=== PATIENT | female | born 1940 | race Caucasian/White ===

== ENCOUNTER 2019-08-12 10:02 | Emergency (ER) | payer MEDICARE, BC ==
[~2019-08-12] VITALS: Ht 167.6 cm; Wt 65.8 kg
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
--- OUTSIDE RECORDS SUMMARY | 2019-08-12 10:04 | XMS REPORT | Summary of Care ---
Author Author RAJ MATTHEW Unknown Address Unknown Phone Unavailable Care Team Providers Care Combiner Operator Name Role Phone ELLY Gao, RYAN Unavailable Unavailable RAJ MATTHEW Unavailable Unavailable NURIS Gao, CELI Unavailable Sola GONZALEZ MD [place], ELIZABETH PALM Unavailable Unavailable NURIS PAINTER, CELI Senior Unavailable Unavailable CARLOS Gao, ELIZABETH Unavailable Unavailable MARY KAPOK AND COTTON MACHINE OPERATOR, RADHA Unavailable Unavailable Elly PAINTER, Ryan Unavailable Unavailable CARLOS PAINTER, ELIZABETH ANTHONY Unavailable Unavailable EVE BARRERA [place], SHAHLA Gonzalez Unavailable Unavailable NITIN PAINTER, SANDRA Obregon Unavailable Unavailable NARAYAN CERVANTES, EDMUND Unavailable Unavailable TRU MORATAYA [place], RAJ FRAIRE Unavailable Unavailable MATTEO PAINTER [place], SHELBIE Unavailable Unavailable Unavailable Unavailable Functional Status [...] Z78.0) Status: Active 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 (0-1-7-2-4-2-2) * Quantity: 90 Refills: 0 RAJ MATTHEW * Start : 15-Apr-2015 Active Simvastatin 20 MG Oral Tablet TAKE 1 TABLET NIGHTLY AT BEDTIME * Quantity: 90 Refills: 1 RYAN SANABRIA M.D. * Start : 15-Oct-2015 Active Multivitamins TABS TAKE 1 TABLET DAILY. * Refills: 0 Active Stool Softener TABS TAKE 1 TABLET TWICE DAILY * Refills: 0 Active Dulcolax Stool Softener CAPS ABOUT ONCE A WEEK, NEEDED * Refills: 0 Active Fiber Adult Gummies CHEW TAKE 2 TABLET DAILY * Refills: 0 Active Calcium + D TABS TAKE 1 TABLET TWICE DAILY * Refills: 0 Active Nitroglycerin 0.4 MG Sublingual Tablet Sublingual DISSOLVE 1 TABLET UNDER THE TONGUE NEEDED FOR CHEST PAIN. * Quantity: 30 Refills: 0 CELI LAWLER M.D. * Start : 07-Jul-2019 Active Fludrocortisone Acetate 0.1 MG Oral Tablet [...] Z87.440) Status: Resolved Procedures Procedure Dates Details [QLH] HEPATIC FUNCTION PANEL Date: 26-Jun-2019 [QL] TSH, 3RD GENERATION W/REFLEX TO FT4 Date: 31-Jul-2019 History of Bladder Procedures Completed History of Tonsillectomy Completed History of Shoulder Surgery Completed History of Arthroscopy Knee Completed History of Cholecystectomy Completed 16-Jul-2016 Immunization Name Dates Details Zoster (Zostavax) on: Jul-2007 Hepatitis A on: 25-Aug-2010 Influenza on: 10-Mar-2011 Fluzone INJ Lot #: [id number] on: 20-Mar-2013 Influenza on: 04-Apr-2014 Prevnar 13 Intramuscular Suspension Lot #: [id number] on: 20-Aug-2014 Fluvirin INJ Lot #: [id number] on: 15-Mar-2015 Fluzone Quadrivalent 0.5 ML Intramuscular Suspension Lot #: [id number] on: 20-Mar-2016 Pneumovax 23 25 MCG/0.5ML Injection Injectable Lot #: [id number] on: 08-Sep-2016 Fluzone High-Dose 0.5 ML Intramuscular Suspension Prefilled Syringe Lot #: [id number] on: 10-Mar-2017 Fluzone High-Dose 0.5 ML Intramuscular Suspension Prefilled Syringe Lot #: [id number] on: 17-Mar-2018 Shingrix 50 MCG/0.5ML Intramuscular Suspension Reconstituted on: 04-Apr-2018 Tdap on: 04-Apr-2018 Shingrix 50 MCG/0.5ML Intramuscular Suspension Reconstituted on: 04-Jun-2018 Fluzone High-Dose 0.5 ML Intramuscular Suspension Prefilled Syringe Lot #: [id number] on: 19-Apr-2019 Family History Name Dates Details [...] Value Details :54 XRAY Chest 4 views [id number] Chest 4 views SEE NOTES Comments: EXAM: [...] is approximately 13% higher for peopleidentified as -[place]. eGFR NON- 45 {ML/MIN/1.7} (Below low threshold) [...] u/l (Above high threshold) Range: 6-29 :23 [[facility]] D-DIMER, QUANTITATIVE D-DIMER, QUANTITATIVE 0.31 {mcg/mL_FEU} [...] 2006 11:295(2):199-207] For additional information, please refer to:http://education.UannaBe/faq/UJN968(This link is being provided for informational/educational purposes only) :23 [[facility]] CBC (INCLUDES DIFF/PLT) WHITE BLOOD CELL [...] 7.5-12.5 ABSOLUTE NEUTROPHILS 3548 {cells/uL} (Normal) Range: 5169-1006 ABSOLUTE LYMPHOCYTES 691 {cells/uL} (Below low threshold) [...] <0.01 Comments: For additional information, please refer tohttp://education.UannaBe/faq/XIX886(This link is being provided for informational/educationalpurposes only.) :50 [O] PT/INR (in office) International Normalization Ratio 1.8 PT 21.7 . 33q :48 [O] PT/INR (in office) PT 28.5 (Normal) INR 2.4 (Normal) Plan of Care Name Dates Details Planned Observations Planned Goals not documented Planned Encounters Appointment; RAJ OTT P.A. On: 07-Aug-2019 8:00 Appointment; CELI LAWLER M.D. On: 10-Aug-2019 8:15 Appointment; SHELBIE FELIPE M.D. On: 03-Nov-2019 9:15 Appointment; JOSÉ LEBLANC On: 21-Nov-2019 8:00 Appointment; RYAN SANABRIA M.D. On: 28-Nov-2019 10:00 Interventions Provided Medication Changes* Fludrocortisone Acetate 0.1 MG Oral Tablet - Renew with Changes * Levothyroxine Sodium 50 MCG Oral Tablet - Renew Labs/Procedures/Imaging* [QLH] TSH, 3RD GENERATION W/REFLEX TO FT4; To Be Done: 31 Jul 2019 * [O] PT/INR (in office); Done: 31 Jul 2019 Plan* Hypotension - now having elevated BP readings; decrease fludrocortisone to 0.1 mg once daily; monitor BP; BP possible increasing now that she is no longer taking amiodarone * Anticoagulation with warfarin - INR at goal; continue same warfarin dose; f/u 1 week to recheck PT/INR * hypothyroidism - recheck TSH * Atrial fibrillation/CAD - per EP and cardiology recommendations Instructions Name Dates Details Instructions not documented Encounters Appointment; ELIZABETH GONZALEZ M.D. Encounter Diagnosis: Problem not documented On: 09-Aug-2017 8:15 Appointment; ELIZABETH GONZALEZ M.D. Encounter Diagnosis: Problem not documented On: 06-Sep-2017 8:30 Appointment; ELIZABETH GONZALEZ M.D. Encounter Diagnosis: Problem not documented On: 08-Oct-2017 9:45 Appointment; EDMUND BUSCH, PKevinAKevin Encounter Diagnosis: Problem not documented On: 08-Nov-2017 9:00 Appointment; EDMUND BUSCH PKevinAKevin Encounter Diagnosis: Problem not documented On: 06-Dec-2017 12:30 Appointment; EDMUND BUSCH PJosué Encounter Diagnosis: Problem not documented On: 03-Jan-2018 8:30 Appointment; RYAN SANABRIA M.D. Encounter Diagnosis: Problem not documented On: 11-Jan-2018 9:20 Appointment; EDMUND BUSCH PKevinAKevin Encounter Diagnosis: Problem not documented On: 02-Feb-2018 8:15 Appointment; RAJ OTT P.A. Encounter Diagnosis: Problem not documented On: 08-Feb-2018 10:30 Appointment; EDMUND BUSCH P.AKevin Encounter Diagnosis: Problem not documented On: 15-Feb-2018 9:30 Appointment; EDMUND BUSCH P.AKevin Encounter Diagnosis: Problem not documented On: 17-Mar-2018 8:45 Appointment; EDMUND BUSCH P.AKevin Encounter Diagnosis: Problem not documented On: 31-Mar-2018 8:00 Appointment; ELIZABETH GONZALEZ M.D. Encounter Diagnosis: Problem not documented On: 06-Apr-2018 9:30 Appointment; ELIZABETH GONZALEZ M.D. Encounter Diagnosis: Problem not documented On: 06-Apr-2018 9:30 Appointment; EDMUND BUSCH PKevinAKevin Encounter Diagnosis: Problem not documented On: 02-May-2018 7:30 Appointment; EDMUND BUSCH P.AKevin Encounter Diagnosis: Problem not documented On: 09-May-2018 8:15 Appointment; EDMUND BUSCH PKevinAKevin Encounter Diagnosis: Problem not documented On: 30-May-2018 8:15 Appointment; RADHA HERNANDEZ NP Encounter Diagnosis: Problem not documented On: 13-Jun-2018 8:00 Appointment; EDMUND BUSCH PKevinAKevin Encounter Diagnosis: Problem not documented On: 29-Jun-2018 8:00 Appointment; RYAN SANABRIA M.D. Encounter Diagnosis: Problem not documented On: 15-Jul-2018 9:20 Appointment; EDMUND BUSCH P.AKevin Encounter Diagnosis: Problem not documented On: 29-Jul-2018 15:00 Appointment; EDMUND BUSCH P.AKevin Encounter Diagnosis: Problem not documented On: 29-Aug-2018 8:15 Appointment; RYAN SANABRIA M.D. Encounter Diagnosis: Problem not documented On: 30-Aug-2018 10:00 Appointment; GUIDO LEBLANC Encounter Diagnosis: Problem not documented On: 30-Aug-2018 13:00 Appointment; EDMUND BUSCH P.AKevin Encounter Diagnosis: Problem not documented On: 05-Sep-2018 10:00 Appointment; EDMUND BUSCH PKevinAKevin Encounter Diagnosis: Problem not documented On: 12-Sep-2018 9:15 Appointment; RYAN SANABRIA M.D. Encounter Diagnosis: Problem not documented On: 21-Sep-2018 18:00 Appointment; EDMUND BUSCH P.A. Encounter Diagnosis: Problem not documented On: 26-Sep-2018 9:30 Appointment; RAJ OTT P.A. Encounter Diagnosis: Problem not documented On: 10-Oct-2018 9:45 Appointment; SHAHLA PRADO RD Encounter Diagnosis: Problem not documented On: 11-Oct-2018 10:00 Appointment; EDMUND BUSCH P.AKevin Encounter Diagnosis: Problem not documented On: 31-Oct-2018 9:30 Appointment; EDMUND BUSCH P.A. Encounter Diagnosis: Problem not documented On: 14-Nov-2018 11:15 Appointment; EDMUND BUSCH P.A. Encounter Diagnosis: Problem not documented On: 01-Dec-2018 10:30 Appointment; RYAN SANABRIA M.D. Encounter Diagnosis: Problem not documented On: 07-Dec-2018 13:40 Appointment; EDMUND BUSCH PKevinAKevin Encounter Diagnosis: Problem not documented On: 26-Dec-2018 7:30 Appointment; EDMUND BUSCH P.A. Encounter Diagnosis: Problem not documented On: 25-Jan-2019 7:30 Appointment; GUIDO LEBLANC Encounter Diagnosis: Problem not documented On: 13-Feb-2019 14:00 Appointment; MICHEAL HERNANDEZ P.A. Encounter Diagnosis: Problem not documented On: 27-Feb-2019 9:00 Appointment; JOSÉ LEBLANC Encounter Diagnosis: Problem not documented On: 01-Mar-2019 [...] not documented On: 31-Mar-2019 9:15 Appointment; ELIZABETH GONZAELZ M.D. Encounter Diagnosis: Problem not documented On: 19-Apr-2019 9:45 Appointment; EDMUND BUSCH P.A. Encounter Diagnosis: Problem not documented On: 25-Apr-2019 [...]
--- OUTSIDE RECORDS SUMMARY | 2019-08-12 10:05 | XMS REPORT | Summary of Care ---
Author Author [facility] Address [address] [place] [address] Phone Unavailable Care Team Providers Care Re Etcher Name Role Phone ELLY Gao, RYAN Unavailable Unavailable TRU P.AKevin, RAJ Unavailable Unavailable NURIS Gao, CELI Unavailable Sola GONZALEZ MD [place], ELIZABETH PALM Unavailable Unavailable NURIS PAINTER, CELI Senior Unavailable Unavailable CARLOS Gao, ELIZABETH Unavailable Unavailable MARY ACOUSTIC WARFARE ANALYST, RADHA Unavailable Unavailable Elly PAINTER, Ryan Unavailable Unavailable CARLOS PAINTER, ELIZABETH ANTHONY Unavailable Unavailable EVE BARRERA [place], SHAHLA Gonzalez Unavailable Unavailable NITIN PAINTER, SANDRA Obregon Unavailable Unavailable NARAYAN CERVANTES, EDMUND Unavailable Unavailable TRU PA [place], RAJ FRAIRE Unavailable Unavailable MATTEO PAINTER [place], SHELBIE Unavailable Unavailable Unavailable Unavailable Functional Status [...] Z78.0) Status: Active 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 (6-6-9-2-4-2-2) * Quantity: 90 Refills: 0 RAJ MATTHEW [...] Z87.440) Status: Resolved Procedures Procedure Dates Details [[facility]] HEPATIC FUNCTION PANEL Date: 26-Jun-2019 History of Bladder Procedures Completed History of Tonsillectomy Completed History of Shoulder Surgery Completed History of Arthroscopy Knee Completed History of Cholecystectomy Completed 16-Jul-2016 Immunization Name Dates Details Zoster (Zostavax) on: Jul-2007 Hepatitis A on: 25-Aug-2010 Influenza on: 10-Mar-2011 Fluzone INJ Lot #: [id number] on: 20-Mar-2013 Influenza on: 04-Apr-2014 Prevnar 13 Intramuscular Suspension Lot #: [id number] on: 20-Aug-2014 Fluvirin INJ Lot #: [id number] on: 15-Mar-2015 Fluzone Quadrivalent 0.5 ML Intramuscular Suspension Lot #: [id number] on: 20-Mar-2016 Pneumovax 23 25 MCG/0.5ML Injection Injectable Lot #: [id number] on: 08-Sep-2016 Fluzone High-Dose 0.5 ML Intramuscular Suspension Prefilled Syringe Lot #: [id number] on: 10-Mar-2017 Fluzone High-Dose 0.5 ML Intramuscular Suspension Prefilled Syringe Lot #: [id number] on: 17-Mar-2018 Shingrix 50 MCG/0.5ML Intramuscular Suspension Reconstituted on: 04-Apr-2018 Tdap on: 04-Apr-2018 Shingrix 50 MCG/0.5ML Intramuscular Suspension Reconstituted on: 04-Jun-2018 Fluzone High-Dose 0.5 ML Intramuscular Suspension Prefilled Syringe Lot #: [id number] on: 19-Apr-2019 Family History Name Dates Details [...] Value Details :54 XRAY Chest 4 views [id number] Chest 4 views SEE NOTES Comments: EXAM: [...] by: Gomez Knowles MD 07/07/2015:08FINAL REPORT :23 [[facility]] CMP W/EGFR GLUCOSE 98 mg/dl (Normal) Range: 65-139 Comments: Non-fasting reference interval UREA NITROGEN (BUN) 28 mg/dl (Above high threshold) Range: 7-25 CREATININE 1.16 mg/dl (Above high threshold) Range: 0.60-0.93 Comments: For patients >49 years of age, the reference limitfor Creatinine is approximately 13% higher for peopleidentified as -[place]. eGFR NON- 45 {ML/MIN/1.7} (Below low threshold) [...] u/l (Above high threshold) Range: 6-29 :23 [[facility]] D-DIMER, QUANTITATIVE D-DIMER, QUANTITATIVE 0.31 {mcg/mL_FEU} (Normal) [...] 2006 11:295(2):199-207] For additional information, please refer to:http://education.GlycoPure/faq/VXA707(This link is being provided for informational/educational purposes only) :23 [[facility]] CBC (INCLUDES DIFF/PLT) WHITE BLOOD CELL COUNT [...] 7.5-12.5 ABSOLUTE NEUTROPHILS 3548 {cells/uL} (Normal) Range: 9600-9259 ABSOLUTE LYMPHOCYTES 691 {cells/uL} (Below low threshold) [...] <0.01 Comments: For additional information, please refer tohttp://education.[employer].Procurify/faq/TGN223(This link is being provided for informational/educationalpurposes only.) [...] Appointment; RYAN SANABRIA M.D. On: 28-Nov-2019 10:00 Instructions Name Dates Details Instructions not documented Encounters Appointment; ELIZABETH GONZALEZ M.D. Encounter Diagnosis: Problem not documented On: 09-Aug-2017 8:15 Appointment; ELIZABETH GONZALEZ M.D. Encounter Diagnosis: Problem not documented On: 06-Sep-2017 8:30 Appointment; ELIZABETH GONZALEZ M.D. Encounter Diagnosis: Problem not documented On: 08-Oct-2017 9:45 Appointment; EDMUND BUSCH PKevinAKevin Encounter Diagnosis: Problem not documented On: 08-Nov-2017 9:00 Appointment; EDMUND BUSCH PKevinAKevin Encounter Diagnosis: Problem not documented On: 06-Dec-2017 12:30 Appointment; EDMUND BUSCH P.A. Encounter Diagnosis: Problem not documented On: 03-Jan-2018 [...] documented On: 17-Mar-2018 8:45 Appointment; EDMUND BUSCH PKevinAKevin Encounter Diagnosis: Problem not documented On: 31-Mar-2018 8:00 Appointment; ELIZABETH GONZALEZ M.D. Encounter Diagnosis: Problem not documented On: 06-Apr-2018 9:30 Appointment; ELIZABETH GONZALEZ M.D. Encounter Diagnosis: Problem not documented On: 06-Apr-2018 9:30 Appointment; EDMUND BUSCH P.A. Encounter Diagnosis: Problem not documented On: 02-May-2018 7:30 Appointment; EDMUND BUSCH P.A. Encounter Diagnosis: Problem not documented On: 09-May-2018 8:15 Appointment; EDMUND BUSCH P.A. Encounter Diagnosis: Problem not documented On: 30-May-2018 8:15 Appointment; RADHA HERNANDEZ NP Encounter Diagnosis: Problem not documented On: 13-Jun-2018 8:00 Appointment; EDMUND BUSCH P.A. Encounter Diagnosis: Problem not documented On: 29-Jun-2018 8:00 Appointment; RYAN SANABRIA M.D. Encounter Diagnosis: Problem not documented On: 15-Jul-2018 9:20 Appointment; EDMUND UBSCH P.A. Encounter Diagnosis: Problem not documented On: 29-Jul-2018 15:00 Appointment; EDMUND BUSCH P.A. Encounter Diagnosis: Problem not documented On: 29-Aug-2018 8:15 Appointment; RYAN SANABRIA M.D. Encounter Diagnosis: Problem not documented On: 30-Aug-2018 10:00 Appointment; GUIDO LEBLANC Encounter Diagnosis: Problem not documented On: 30-Aug-2018 13:00 Appointment; EDMUND BUSCH P.A. Encounter Diagnosis: Problem not documented On: 05-Sep-2018 10:00 Appointment; EDMUND BUSCH P.A. Encounter Diagnosis: Problem not documented On: 12-Sep-2018 [...] documented On: 07-Dec-2018 13:40 Appointment; EDMUND BUSCH P.A. Encounter Diagnosis: Problem not documented On: 26-Dec-2018 [...]
--- OUTSIDE RECORDS SUMMARY | 2019-08-12 10:05 | XMS REPORT | Summary of Care ---
Author Author Sheila Clark M.A. Unknown Address [facility] Phone Unavailable Care Team Providers Care Plant Machinist Name Role Phone Sheila Clark M.A. Unavailable Unavailable ELLY Gao, RYAN Unavailable Unavailable TRU Cole, RAJ Unavailable Unavailable NURIS Gao, CELI Unavailable Sola GONZALEZ MD [place], ELIZABETH PALM Unavailable Unavailable NURIS PAINTER, CELI Senior Unavailable Unavailable CARLOS Gao, ELIZABETH Unavailable Unavailable MARY REDUCING SYSTEM OPERATOR, RADHA Unavailable Unavailable Elly PAINTER, Ryan Unavailable Unavailable CARLOS PAINTER, ELIZABETH ANTHONY Unavailable Unavailable EVE BARRERA [place], SHAHLA J Unavailable Unavailable NITIN PAINTER, SANDRA Obregon Unavailable Unavailable NARAYAN CERVANTES, EDMUND Unavailable Unavailable TRU MORATAYA [place], RAJ FRAIRE Unavailable Unavailable MATTEO PAINTER [place], SHELBIE Unavailable Unavailable Unavailable Unavailable Functional Status [...] ALBINA-inhibitor cough (786.2, R05) Status: Active Special DrKevin Services Analysis Of Computerized Data Status: Active [...] Z78.0) Status: Active 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 * Refills: 0 Active Dulcolax Stool Softener CAPS ABOUT ONCE A WEEK, NEEDED * Refills: 0 Active Fiber Adult Gummies CHEW TAKE 2 TABLET DAILY * Refills: 0 Active Stool Softener TABS TAKE 1 TABLET TWICE DAILY * Refills: 0 Active Calcium + D TABS TAKE 1 TABLET TWICE DAILY * Refills: 0 Active Simvastatin 20 MG Oral Tablet TAKE [...] Tuesdays & Fridays take 2 po qd. (9-5-6-2-4-2-2) * Quantity: 90 Refills: 0 TRU P.A., RAJ * Start : 15-Apr-2015 Active Fludrocortisone Acetate [...] Resolved Procedures Procedure Dates Details [[facility]] HEPATIC FUNCTION PANEL Date: 26-Jun-2019 History of Bladder Procedures Completed History of Tonsillectomy Completed History of Shoulder Surgery Completed History of Arthroscopy Knee Completed History of Cholecystectomy Completed 16-Jul-2016 Immunization Name Dates Details Zoster (Zostavax) on: Jul-2007 Hepatitis A on: 25-Aug-2010 Influenza on: 10-Mar-2011 Fluzone INJ Lot #: [id number] on: 20-Mar-2013 Influenza on: 04-Apr-2014 Prevnar 13 Intramuscular Suspension Lot #: [id number] on: 20-Aug-2014 Fluvirin INJ Lot #: [id number] on: 15-Mar-2015 Fluzone Quadrivalent 0.5 ML Intramuscular Suspension Lot #: [id number] on: 20-Mar-2016 Pneumovax 23 25 MCG/0.5ML Injection Injectable Lot #: [id number] on: 08-Sep-2016 Fluzone High-Dose 0.5 ML Intramuscular Suspension Prefilled Syringe Lot #: [id number] on: 10-Mar-2017 Fluzone High-Dose 0.5 ML Intramuscular Suspension Prefilled Syringe Lot #: [id number] on: 17-Mar-2018 Shingrix 50 MCG/0.5ML Intramuscular Suspension Reconstituted on: 04-Apr-2018 Tdap on: 04-Apr-2018 Shingrix 50 MCG/0.5ML Intramuscular Suspension Reconstituted on: 04-Jun-2018 Fluzone High-Dose 0.5 ML Intramuscular Suspension Prefilled Syringe Lot #: [id number] on: 19-Apr-2019 Family History Name Dates Details [...] Value Details :54 XRAY Chest 4 views [id number] Chest 4 views SEE NOTES Comments: EXAM: [...] by: Gomez Knowles MD 07/07/2015:08FINAL REPORT :23 [[facility]] CMP W/EGFR GLUCOSE 98 mg/dl (Normal) Range: 65-139 Comments: Non-fasting reference interval UREA NITROGEN (BUN) 28 mg/dl (Above high threshold) Range: 7-25 CREATININE 1.16 mg/dl (Above high threshold) Range: 0.60-0.93 Comments: For patients >49 years of age, the reference limitfor Creatinine is approximately 13% higher for peopleidentified as -[place]. eGFR NON- 45 {ML/MIN/1.7} (Below low threshold) [...] high threshold) Range: 6-29 :23 [[facility]] D-DIMER, QUANTITATIVE D-DIMER, QUANTITATIVE 0.31 {mcg/mL_FEU} (Normal) [...] 2006 11:295(2):199-207] For additional information, please refer to:http://education.Miew/faq/VDH435(This link is being provided for informational/educational purposes only) :23 [[facility]] CBC (INCLUDES DIFF/PLT) WHITE BLOOD CELL COUNT [...] 7.5-12.5 ABSOLUTE NEUTROPHILS 3548 {cells/uL} (Normal) Range: 8839-6850 ABSOLUTE LYMPHOCYTES 691 {cells/uL} (Below low threshold) [...] <0.01 Comments: For additional information, please refer tohttp://education.CloudSafe.CoCollage/faq/QNS048(This link is being provided for informational/educationalpurposes only.) [...] documented On: 08-Oct-2017 9:45 Appointment; EDMUND BUSCH P.A. Encounter Diagnosis: Problem not documented On: 08-Nov-2017 9:00 Appointment; EDMUND BUSCH P.A. Encounter Diagnosis: Problem not documented On: 06-Dec-2017 12:30 Appointment; EDMUND BUSCH P.A. Encounter Diagnosis: Problem not documented On: 03-Jan-2018 8:30 Appointment; RYAN SANABRIA M.D. Encounter Diagnosis: Problem not documented On: 11-Jan-2018 9:20 Appointment; EDMUND BUSCH PJosué Encounter Diagnosis: Problem not documented On: 02-Feb-2018 8:15 Appointment; RAJ OTT P.A. Encounter Diagnosis: Problem not documented On: 08-Feb-2018 10:30 Appointment; EDMUND BUSCH P.A. Encounter Diagnosis: Problem not documented On: 15-Feb-2018 9:30 Appointment; EDMUND BUSCH PKevinAKevin Encounter Diagnosis: Problem not documented On: 17-Mar-2018 8:45 Appointment; EDMUND BUSCH PJosué Encounter Diagnosis: Problem not documented On: 31-Mar-2018 [...] documented On: 15-Jul-2018 9:20 Appointment; EDMUND BUSCH P.A. Encounter Diagnosis: Problem not documented On: 29-Jul-2018 15:00 Appointment; EDMUND BUSCH P.A. Encounter Diagnosis: Problem not documented On: 29-Aug-2018 8:15 Appointment; RYAN SANABRIA M.D. Encounter Diagnosis: Problem not documented On: 30-Aug-2018 10:00 Appointment; GUIDO LEBLANC Encounter Diagnosis: Problem not documented On: 30-Aug-2018 13:00 Appointment; EDMUND BUSCH P.A. Encounter Diagnosis: Problem not documented On: 05-Sep-2018 10:00 Appointment; EDMUND BUSCH P.AKevin Encounter Diagnosis: Problem not documented On: 12-Sep-2018 9:15 Appointment; RYAN SANABRIA M.D. Encounter Diagnosis: Problem not documented On: 21-Sep-2018 18:00 Appointment; DEMUND BUSCH P.A. Encounter Diagnosis: Problem not documented [...]
--- OUTSIDE RECORDS SUMMARY | 2019-08-12 10:05 | XMS REPORT | Summary of Care ---
Author Author [facility] Address [address] [place] [address] Phone Unavailable Care Team Providers Care Endoscopy Technican Name Role Phone ELLY Gao, RYAN Unavailable Unavailable TRU P.AKevin, RAJ Unavailable Unavailable NURIS Gao, CELI Unavailable Sola GONZALEZ MD [place], ELIZABETH PALM Unavailable Unavailable NURIS PAINTER, CELI Senior Unavailable Unavailable CARLOS Gao, ELIZABETH Unavailable Unavailable MARY MOTOR VEHICLE EMISSIONS INSPECTOR, RADHA Unavailable Unavailable Elly PAINTER, Ryan Unavailable Unavailable CARLOS PAINTER, ELIZABETH ANTHONY Unavailable Unavailable EVE BARRERA [place], SHAHLA Gonzalez Unavailable Unavailable NITIN PAINTER, SANDRA Obregon Unavailable Unavailable NARAYAN CERVANTES, EDMUND Unavailable Unavailable TRU PA GA, RAJ FRAIRE Unavailable Unavailable MATTEO PAINTER GA, SHELBIE Unavailable Unavailable Unavailable Unavailable Functional Status [...] Z78.0) Status: Active 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 (5-6-7-2-4-2-2) * Quantity: 90 Refills: 0 RAJ MATTHEW [...] Status: Resolved Procedures Procedure Dates Details [[facility]] HEPATIC FUNCTION PANEL Date: 26-Jun-2019 History of Bladder Procedures Completed History of Tonsillectomy Completed History of Shoulder Surgery Completed History of Arthroscopy Knee Completed History of Cholecystectomy Completed 16-Jul-2016 Immunization Name Dates Details Zoster (Zostavax) on: Jul-2007 Hepatitis A on: 25-Aug-2010 Influenza on: 10-Mar-2011 Fluzone INJ Lot #: [id number] on: 20-Mar-2013 Influenza on: 04-Apr-2014 Prevnar 13 Intramuscular Suspension Lot #: [id number] on: 20-Aug-2014 Fluvirin INJ Lot #: [id number] on: 15-Mar-2015 Fluzone Quadrivalent 0.5 ML Intramuscular Suspension Lot #: [id number] on: 20-Mar-2016 Pneumovax 23 25 MCG/0.5ML Injection Injectable Lot #: [id number] on: 08-Sep-2016 Fluzone High-Dose 0.5 ML Intramuscular Suspension Prefilled Syringe Lot #: [id number] on: 10-Mar-2017 Fluzone High-Dose 0.5 ML Intramuscular Suspension Prefilled Syringe Lot #: [id number] on: 17-Mar-2018 Shingrix 50 MCG/0.5ML Intramuscular Suspension Reconstituted on: 04-Apr-2018 Tdap on: 04-Apr-2018 Shingrix 50 MCG/0.5ML Intramuscular Suspension Reconstituted on: 04-Jun-2018 Fluzone High-Dose 0.5 ML Intramuscular Suspension Prefilled Syringe Lot #: [id number] on: 19-Apr-2019 Family History Name Dates Details [...] 65yrs) or more drinks in a day? Results Date Description Value Details :23 [[facility]] CMP W/EGFR GLUCOSE 98 mg/dl (Normal) Range: [...] (Above high threshold) Range: 6-29 :23 [[facility]] D-DIMER, QUANTITATIVE D-DIMER, QUANTITATIVE 0.31 {mcg/mL_FEU} (Normal) [...] 2006 11:295(2):199-207] For additional information, please refer to:[email or web address] Pty LTD/faq/XDF892(This link is being provided for informational/educational purposes only) [id number]:23 [[facility]] CBC (INCLUDES DIFF/PLT) WHITE BLOOD CELL COUNT [...] 7.5-12.5 ABSOLUTE NEUTROPHILS 3548 {cells/uL} (Normal) Range: 0362-0885 ABSOLUTE LYMPHOCYTES 691 {cells/uL} (Below low threshold) Range: 850-3900 ABSOLUTE MONOCYTES 421 {cells/uL} (Normal) Range: 200-950 ABSOLUTE EOSINOPHILS 191 {cells/uL} (Normal) Range: 15-500 ABSOLUTE BASOPHILS 49 {cells/uL} (Normal) Range: 0-200 NEUTROPHILS 72.4 % (Normal) LYMPHOCYTES 14.1 % (Normal) MONOCYTES 8.6 % (Normal) EOSINOPHILS 3.9 % (Normal) BASOPHILS 1.0 % (Normal) [id number] [QL] TROPONIN T Comments: REPORT COMMENT:FASTING:NO TROPONIN T <0.01 ng/ml Range: <0.01 Comments: For additional information, please refer [email or web address] [employer]/faq/UCT786(This link is being provided for informational/educationalpurposes only.) [...] documented On: 11-Jan-2018 9:20 Appointment; EDMUND BUSCH P.A. Encounter Diagnosis: Problem not documented On: 02-Feb-2018 8:15 Appointment; RAJ OTT P.A. Encounter Diagnosis: Problem not documented On: 08-Feb-2018 10:30 Appointment; EDMUND BUSCH P.AKevin Encounter Diagnosis: Problem not documented On: 15-Feb-2018 9:30 Appointment; EDMUND BUSCH P.AKevin Encounter Diagnosis: Problem not documented On: 17-Mar-2018 8:45 Appointment; EDMUDN BUSCH P.A. Encounter Diagnosis: Problem not documented On: 31-Mar-2018 [...] Problem not documented On: 30-Aug-2018 10:00 Appointment; [place]-[facility], HOLTER Encounter Diagnosis: Problem not documented On: 30-Aug-2018 13:00 Appointment; EDMUND BUSCH P.AKevin Encounter Diagnosis: Problem not documented On: 05-Sep-2018 10:00 Appointment; EDMUND BUSCH P.AKevin Encounter Diagnosis: Problem not documented On: 12-Sep-2018 9:15 Appointment; RYAN SANABRIA M.D. Encounter Diagnosis: Problem not documented On: 21-Sep-2018 18:00 Appointment; EDMUND BUSCH P.AKevin Encounter Diagnosis: Problem not documented On: 26-Sep-2018 [...] Problem not documented On: 25-Jan-2019 7:30 Appointment; [place], HOLTER Encounter Diagnosis: Problem not documented On: 13-Feb-2019 14:00 Appointment; MICHEAL HERNANDEZ P.A. Encounter Diagnosis: Problem not documented On: 27-Feb-2019 9:00 Appointment; [place], ECHO Encounter Diagnosis: Problem not documented On: [...]
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
--- OUTSIDE RECORDS SUMMARY | 2019-08-12 10:06 | XMS REPORT | Summary of Care ---
Author Author [facility] Address [address] [place] [address] Phone Unavailable Care Team Providers Care Sign Painter Helper Name Role Phone ELLY Gao, RYAN Unavailable Unavailable TRU P.AKevin, RAJ Unavailable Unavailable NURIS Gao, CELI Unavailable Sola GONZALEZ MD [place], ELIZABETH PALM Unavailable Unavailable NURIS PAINTER, CELI Senior Unavailable Unavailable CARLOS Gao, ELIZABETH Unavailable Unavailable MARY RESPIRATORY PHYSICIAN, RADHA Unavailable Unavailable Elly PAINTER, Ryan Unavailable Unavailable CARLOS PAINTER, ELIZABETH ANTHONY Unavailable Unavailable EVE BARRERA [place], SHAHLA Gonzalez Unavailable Unavailable NITIN PAINTER, SANDRA Obregon Unavailable Unavailable NARAYAN CERVANTES, EDMUND Unavailable Unavailable TRU PA [place], RAJ FRAIRE Unavailable Unavailable MATTEO PAINTER [...] Z78.0) Status: Active 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 (3-7-4-2-4-2-2) * Quantity: 90 Refills: 0 RAJ MATTHEW [...] Resolved Procedures Procedure Dates Details [[facility]] HEPATIC FUNCTION PANEL Date: 26-Jun-2019 History of Bladder Procedures Completed History of Tonsillectomy Completed History of Shoulder Surgery Completed History of Arthroscopy Knee Completed History of Cholecystectomy Completed 16-Jul-2016 Immunization Name Dates Details Zoster (Zostavax) on: Jul-2007 Hepatitis A on: 25-Aug-2010 Influenza on: 10-Mar-2011 Fluzone INJ Lot #: [id number] on: 20-Mar-2013 Influenza on: 04-Apr-2014 Prevnar 13 Intramuscular Suspension Lot #: [id number] on: 20-Aug-2014 Fluvirin INJ Lot #: [id number] on: 15-Mar-2015 Fluzone Quadrivalent 0.5 ML Intramuscular Suspension Lot #: [id number] on: 20-Mar-2016 Pneumovax 23 25 MCG/0.5ML Injection Injectable Lot #: [id number] on: 08-Sep-2016 Fluzone High-Dose 0.5 ML Intramuscular Suspension Prefilled Syringe Lot #: [id number] on: 10-Mar-2017 Fluzone High-Dose 0.5 ML Intramuscular Suspension Prefilled Syringe Lot #: [id number] on: 17-Mar-2018 Shingrix 50 MCG/0.5ML Intramuscular Suspension Reconstituted on: 04-Apr-2018 Tdap on: 04-Apr-2018 Shingrix 50 MCG/0.5ML Intramuscular Suspension Reconstituted on: 04-Jun-2018 Fluzone High-Dose 0.5 ML Intramuscular Suspension Prefilled Syringe Lot #: [id number] on: 19-Apr-2019 Family History Name Dates Details [...] Results Date Description Value Details :23 [[facility]] CMP W/EGFR GLUCOSE 98 mg/dl (Normal) Range: 65-139 Comments: Non-fasting reference interval UREA NITROGEN (BUN) 28 mg/dl (Above high threshold) Range: 7-25 CREATININE 1.16 mg/dl (Above high threshold) Range: 0.60-0.93 Comments: For patients >49 years of age, the reference limitfor Creatinine is approximately 13% higher for peopleidentified as -[place]. eGFR NON- 45 {ML/MIN/1.7} (Below low threshold) [...] high threshold) Range: 6-29 :23 [[facility]] D-DIMER, QUANTITATIVE D-DIMER, QUANTITATIVE 0.31 [...] 2006 11:295(2):199-207] For additional information, please refer to:http://education.PropertyGuru/faq/CIH470(This link is being provided for informational/educational purposes only) [id number]:23 [[facility]] CBC (INCLUDES DIFF/PLT) WHITE BLOOD [...] 7.5-12.5 ABSOLUTE NEUTROPHILS 3548 {cells/uL} (Normal) Range: 0655-3300 ABSOLUTE LYMPHOCYTES 691 {cells/uL} (Below low threshold) Range: 850-3900 ABSOLUTE MONOCYTES 421 {cells/uL} (Normal) Range: 200-950 ABSOLUTE EOSINOPHILS 191 {cells/uL} (Normal) Range: 15-500 ABSOLUTE BASOPHILS 49 {cells/uL} (Normal) Range: 0-200 NEUTROPHILS 72.4 % (Normal) LYMPHOCYTES 14.1 % (Normal) MONOCYTES 8.6 % (Normal) EOSINOPHILS 3.9 % (Normal) BASOPHILS 1.0 % (Normal) [id number] [QL] TROPONIN T Comments: REPORT COMMENT:FASTING:NO TROPONIN T <0.01 ng/ml Range: <0.01 Comments: For additional information, please refer tohttp://[email or web address]/faq/ERS724(This link is being provided for informational/educationalpurposes only.) [...] Planned Goals not documented Planned Encounters Appointment; CELI LAWLER M.D. On: 10-Aug-2019 8:15 [...] documented On: 15-Feb-2018 9:30 Appointment; EDMUND BUSCH P.A. Encounter Diagnosis: Problem not documented On: 17-Mar-2018 8:45 Appointment; EDMUND BUSCH P.A. Encounter Diagnosis: Problem [...] Problem not documented On: 25-Jan-2019 7:30 Appointment; KM LEBLANCTER Encounter Diagnosis: Problem not documented On: 13-Feb-2019 [...]
--- OUTSIDE RECORDS SUMMARY | 2019-08-12 10:06 | XMS REPORT | Summary of Care ---
Author Author RAJ MATTHEW Unknown Address Unknown Phone Unavailable Care Team Providers Care House Steward/Stewardess Name Role Phone ELLY Gao, RYAN Unavailable Unavailable RAJ MATTHEW Unavailable Unavailable NURIS Gao, CELI Unavailable Sola GONZALEZ MD [place], ELIZABETH PALM Unavailable Unavailable NURIS PAINTER, CELI Senior Unavailable Unavailable CARLOS Gao, ELIZABETH Unavailable Unavailable MARY ANIMAL CAREGIVER, RADHA Unavailable Unavailable Elly PAINTER, Ryan Unavailable Unavailable CARLOS PAINTER, ELIZABETH ANTHONY Unavailable Unavailable EVE BARRERA [place], SHAHLA Gonzalez Unavailable Unavailable NITIN PAINTER, SANDRA Obregon Unavailable Unavailable NARAYAN CERVANTES, EDMUND Unavailable Unavailable TRU MORATAYA [place], RAJ FRAIRE Unavailable Unavailable MATTEO PAINTER [place], SHELBIE Unavailable Unavailable Unavailable Unavailable Functional Status [...] Z78.0) Status: Active 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, I25.10) Status: Active Deep vein thrombosis prophylaxis (V07.9, Z29.9) Status: Active Palpitations (785.1, R00.2) Status: Active Acute pain of left knee (719.46, M25.562) Status: Active Varicose veins (454.9, I83.90) Status: Active Hematuria (599.70, R31.9) Status: Active RLQ abdominal tenderness (789.63, R10.813) Status: Active Constipation (564.00, K59.00) Status: Active Elevated liver enzymes (790.5, R74.8) Status: Active Upper back pain (724.5, M54.9) Status: Active Hypothyroidism (244.9, E03.9) Status: Active CAD (coronary artery disease) (414.00, I25.10) Status: Active Hypotension (458.9, I95.9) Status: Active Urinary frequency (788.41, R35.0) Status: Active Balance disorder (781.99, R26.89) Status: Active Cognitive decline (294.9, R41.89) Status: Active Paroxysmal atrial fibrillation (427.31, I48.0) Status: Active Shortness of breath (786.05, R06.02) Status: Active Essential (primary) hypertension (401.9, I10) Status: Active Anticoagulated by anticoagulation treatment (V58.61, Z79.01) Status: Active Medications Name Dates Details Levothyroxine Sodium 50 MCG Oral Tablet TAKE 1 TABLET DAILY Quantity: 90 RAJ MATTHEW * Start : 13-Mar-2014 Active Tylenol CAPS TAKE CAPSULE PRN * Refills: 0 Active Warfarin Sodium 2 MG Oral Tablet TAKE 1 po per day, except on Tuesdays & Fridays take 2 po qd. (7-8-3-2-4-2-2) * Quantity: 90 Refills: 0 RAJ MATTHEW [...] Active Fludrocortisone Acetate 0.1 MG Oral Tablet 1 PO QOD x 1 week, then 1 PO every third day * Quantity: 60 Refills: 1 TRU RAJ Cole * Start : 19-Jul-2019 Active Allergies and [...] Multiparity (V61.5, Z64.1) Status: Resolved History of orthostatic hypotension (V12.59, Z86.79) Status: Resolved History of Osteoarthritis (V13.4) Status: Resolved History of osteopenia (V13.59, Z87.39) Status: Resolved History of Polyp of sigmoid colon (211.3, K63.5) Status: Resolved History of Stress fracture of foot (733.95, M84.376A) Status: Resolved History of Ultrasound Trans-Vaginal Uterus Atrophied Status: Resolved History of urinary tract infection (V13.02, Z87.440) Status: Resolved Procedures Procedure Dates Details [QLH] HEPATIC FUNCTION PANEL Date: 26-Jun-2019 [QL] CBC (INCLUDES DIFF/PLT) Date: 07-Aug-2019 [QL] CMP W/EGFR Date: 07-Aug-2019 [QLH] VITAMIN B12 Date: 07-Aug-2019 [QL] CULTURE, URINE, ROUTINE Date: 07-Aug-2019 [QL] URINALYSIS, COMPLETE Date: 07-Aug-2019 History of Bladder Procedures Completed History of Tonsillectomy Completed History of Shoulder Surgery Completed History of Arthroscopy Knee Completed History of Cholecystectomy Completed 16-Jul-2016 Immunization Name Dates Details Zoster (Zostavax) on: Jul-2007 Hepatitis A on: 25-Aug-2010 Influenza on: 10-Mar-2011 Fluzone INJ Lot #: [id number] on: 20-Mar-2013 Influenza on: 04-Apr-2014 Prevnar 13 Intramuscular Suspension Lot #: [id number] on: 20-Aug-2014 Fluvirin INJ Lot #: [id number] on: 15-Mar-2015 Fluzone Quadrivalent 0.5 ML Intramuscular Suspension Lot #: [id number] on: 20-Mar-2016 Pneumovax 23 25 MCG/0.5ML Injection Injectable Lot #: [id number] on: 08-Sep-2016 Fluzone High-Dose 0.5 ML Intramuscular Suspension Prefilled Syringe Lot #: [id number] on: 10-Mar-2017 Fluzone High-Dose 0.5 ML Intramuscular Suspension Prefilled Syringe Lot #: [id number] on: 17-Mar-2018 Shingrix 50 MCG/0.5ML Intramuscular Suspension Reconstituted on: 04-Apr-2018 Tdap on: 04-Apr-2018 Shingrix 50 MCG/0.5ML Intramuscular Suspension Reconstituted on: 04-Jun-2018 Fluzone High-Dose 0.5 ML Intramuscular Suspension Prefilled Syringe Lot #: [id number] on: 19-Apr-2019 Family History Name Dates Details [...] smoker Vital Signs Date Test Result Details :43 BP Systolic 175 mm[Hg] Status: Comments: Location: LLE; Position: Sitting BP Diastolic 81 mm[Hg] Status: Comments: Location: LLE; Position: Sitting Height 66 in Status: Weight 156 lb Status: Body Mass Index Calculated 25.18 kg/m2 Status: Body Surface Area Calculated 1.8 m2 Status: Temperature 97.1 f Status: Comments: Method: Temporal Heart Rate 65 /min Status: [id number] BP Systolic 141 mm[Hg] Status: BP Diastolic 65 mm[Hg] Status: Height 66 in Status: Weight 156.3 lb Status: Body Mass Index Calculated 25.23 kg/m2 Status: Body Surface Area Calculated 1.8 m2 Status: Temperature 97.4 f Status: Heart Rate 59 /min Status: Respiration Rate 16 /min Status: :31 BP Systolic 79 mm[Hg] Status: Comments: Location: LUE; Position: Standing BP Diastolic 54 mm[Hg] Status: Comments: Location: LUE; Position: Standing :56 BP Systolic 108 mm[Hg] Status: Comments: Location: LUE; Position: Sitting BP Diastolic 68 mm[Hg] Status: Comments: Location: LUE; Position: Sitting Height 66 in Status: Weight 148 lb Status: Body Mass Index Calculated 23.89 kg/m2 Status: Body Surface Area Calculated 1.76 m2 Status: Temperature 97.8 f Status: Comments: Method: Temporal Heart Rate 79 /min Status: Respiration Rate 16 /min Status: Physical Findings 0 Status: Comments: Alcohol Screen - How many times in the past yr have you had 5 (for M) or 4 (for F) or 4 (for all > 65yrs) or more drinks in a day? Results Date Description Value Details :23 [[facility]] CMP W/EGFR GLUCOSE 98 mg/dl (Normal) Range: 65-139 Comments: Non-fasting reference interval UREA NITROGEN (BUN) 28 mg/dl (Above high threshold) Range: 7-25 CREATININE 1.16 mg/dl (Above high threshold) Range: 0.60-0.93 Comments: For patients >49 years of age, the reference limitfor Creatinine is approximately 13% higher for peopleidentified as -[place]. eGFR NON- 45 {ML/MIN/1.7} (Below low threshold) [...] high threshold) Range: 6-29 :23 [[facility]] D-DIMER, QUANTITATIVE D-DIMER, QUANTITATIVE 0.31 [...] 2006 11:295(2):199-207] For additional information, please refer to:http://education.[employer]/faq/RRM632(This link is being provided for informational/educational purposes only) :23 [[facility]] CBC (INCLUDES DIFF/PLT) WHITE BLOOD [...] 7.5-12.5 ABSOLUTE NEUTROPHILS 3548 {cells/uL} (Normal) Range: 9265-4186 ABSOLUTE LYMPHOCYTES 691 {cells/uL} (Below low threshold) [...] <0.01 Comments: For additional information, please refer tohttp://education.[employer]/faq/FOD279(This link is being provided for informational/educationalpurposes only.) :50 [O] PT/INR (in office) International Normalization Ratio 1.8 PT 21.7 . 33q :48 [O] PT/INR (in office) PT 28.5 (Normal) INR 2.4 (Normal) :45 [QLH] TSH, 3RD GENERATION W/REFLEX TO FT4 Comments: REPORT COMMENT:FASTING:NO TSH, 3RD GENERATION W/REFLEX TO FT4 2.91 {MIU/L} (Normal) Range: 0.40-4.50 :56 [O] PT/INR (in office) PT 32.5 (Normal) INR 2.7 (Normal) :19 [O] Urine Dipstick (In Office) Glucose neg (Normal) LEUKOCYTES neg (Normal) NITRITE neg (Normal) UROBILINOGEN neg (Normal) PROTEIN neg (Normal) pH 7 (Abnormal) URINE BLOOD neg (Normal) SPECIFIC GRAVITY 1.005 (Abnormal) KETONES neg (Normal) BILIRUBIN neg (Normal) COLOR URINE yellow (Normal) APPEARANCE cloudy (Abnormal) Plan of Care Name Dates Details Planned Observations Planned Goals not documented Planned Encounters Neurology Referral Appointment; CELI LAWLER M.D. On: 21-Aug-2019 9:15 Appointment; ELIZABETH GONZALEZ M.D. On: 25-Aug-2019 8:15 Appointment; SHELBIE FELIPE M.D. On: 03-Nov-2019 9:15 Appointment; JOSÉ LEBLANC On: 21-Nov-2019 8:00 Appointment; RYAN SANABRIA M.D. On: 28-Nov-2019 10:00 Interventions Provided Medication Changes* Fludrocortisone Acetate 0.1 MG Oral Tablet - Renew with Changes Labs/Procedures/Imaging* [QLH] CBC (INCLUDES DIFF/PLT); To Be Done: 07 Aug 2019 * [QLH] CMP W/EGFR; To Be Done: 07 Aug 2019 * [QLH] CULTURE, URINE, ROUTINE; To Be Done: 07 Aug 2019 * [QL] URINALYSIS, COMPLETE; To Be Done: 07 Aug 2019 * [QLH] VITAMIN B12; To Be Done: 07 Aug 2019 * [O] PT/INR (in office); Done: 07 Aug 2019 * [O] Urine Dipstick (In Office); Done: 07 Aug 2019 Plan* HTN - uncontrolled; decreased fludrocortisone to 1 PO QOD x 1 week, then 1 PO every 3rd day; f/u 2 weeks with BP log * Urinary frequency/Incontinence - u/a dipstick normal in office; send urine for u/a complete and culture; consider urogyn consult for further eval pending results * Balance disorder/Cognitive decline - check labs; neuro exam grossly intact today; consult neuro due to FHx of dementia; continue to use walker to ambulate * Anticoagulation - INR at goal; repeat in 2 weeks; continue same warfarin dosing * has f/u with Dr. Lawler this week; reschedule for 2 weeks for f/u * F/u sooner or go to ER if symptoms change/worsen Instructions Name Dates Details Instructions not documented [...] documented On: 06-Dec-2017 12:30 Appointment; EDMUND BUSCH P.AKevin Encounter Diagnosis: Problem not documented On: 03-Jan-2018 8:30 Appointment; RYAN SANABRIA M.D. Encounter Diagnosis: Problem not documented On: 11-Jan-2018 9:20 Appointment; EDMUND BUSCH PKevinAKevin Encounter Diagnosis: Problem not documented On: 02-Feb-2018 8:15 Appointment; RAJ OTT P.A. Encounter Diagnosis: Problem not documented On: 08-Feb-2018 10:30 Appointment; EDMUND BUSCH PKeivnAKevin Encounter Diagnosis: Problem not documented On: 15-Feb-2018 9:30 Appointment; EDMUND BUSCH PKevinAKvein Encounter Diagnosis: Problem not documented On: 17-Mar-2018 8:45 Appointment; EDMUND BUSCH PKevinAKevin Encounter Diagnosis: Problem not documented On: 31-Mar-2018 8:00 Appointment; ELIZABETH GONZALEZ M.D. Encounter Diagnosis: Problem not documented On: 06-Apr-2018 9:30 Appointment; ELIZABETH GONZALEZ M.D. Encounter Diagnosis: Problem not documented On: 06-Apr-2018 9:30 Appointment; EDMUND BUSCH P.AKevin Encounter Diagnosis: Problem not documented On: 02-May-2018 7:30 Appointment; EDMUND BUSCH PKevinAKevin Encounter Diagnosis: Problem not documented On: 09-May-2018 [...] documented On: 11-Oct-2018 10:00 Appointment; EDMUND BUSCH PKevinAKevin Encounter Diagnosis: Problem not documented On: 31-Oct-2018 [...] Problem not documented On: 25-Jan-2019 7:30 Appointment; MANJUTabatha HOLTER Encounter Diagnosis: Problem not documented On: 13-Feb-2019 14:00 Appointment; MICHEAL HERNANDEZ P.A. Encounter Diagnosis: Problem not documented On: 27-Feb-2019 9:00 Appointment; ORTEGADENISTabatha, ECHO Encounter Diagnosis: Problem not documented On: [...] Diagnosis: Problem not documented On: 31-Jul-2019 7:30 Appointment; RAJ OTT P.A. Encounter Diagnosis: Problem not documented On: 07-Aug-2019 8:00
--- OUTSIDE RECORDS SUMMARY | 2019-08-12 10:06 | XMS REPORT | Summary of Care ---
Author Author RAJ MATTHEW Unknown Address Unknown Phone Unavailable Care Team Providers Care Regional Account Manager Name Role Phone ELLY Gao, RYAN Unavailable Unavailable RAJ MATTHEW Unavailable Unavailable NURIS Gao, CELI Unavailable Sola GONZALEZ MD [place], ELIZABETH PALM Unavailable Unavailable NURIS PAINTER, CELI Senior Unavailable Unavailable CARLOS Gao, ELIZABETH Unavailable Unavailable MARY FINISHING TUNNEL OPERATOR, RADHA Unavailable Unavailable Elly PAINTER, Ryan Unavailable Unavailable CARLOS PAINTER, ELIZABETH ANTHONY Unavailable Unavailable EVE BARRERA [place], SHAHLA Gonzalez Unavailable Unavailable NITIN PAINTER, SANDRA Obregon Unavailable Unavailable NARAYAN CERVANTES, EDMUND Unavailable Unavailable TRU MORATAYA [place], RAJ FRAIRE Unavailable Unavailable MATTEO PAINTER [place], SHELBIE Unavailable Unavailable Unavailable Unavailable Functional Status [...] Z78.0) Status: Active 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 (0-0-8-2-4-2-2) * Quantity: 90 Refills: 0 RAJ MATTHEW [...] Details [QLH] HEPATIC FUNCTION PANEL Date: 26-Jun-2019 [QLH] CBC (INCLUDES DIFF/PLT) Date: 07-Aug-2019 [QLH] CMP W/EGFR Date: 07-Aug-2019 [QLH] VITAMIN B12 Date: 07-Aug-2019 [QLH] CULTURE, URINE, ROUTINE Date: 07-Aug-2019 [QLH] URINALYSIS, COMPLETE Date: 07-Aug-2019 History of Bladder Procedures Completed History of Tonsillectomy Completed History of Shoulder Surgery Completed History of Arthroscopy Knee Completed History of Cholecystectomy Completed 16-Jul-2016 Immunization Name Dates Details Zoster (Zostavax) on: Jul-2007 Hepatitis A on: 25-Aug-2010 Influenza on: 10-Mar-2011 Fluzone INJ Lot #: [id number] on: 20-Mar-2013 Influenza on: 04-Apr-2014 Prevnar 13 Intramuscular Suspension Lot #: [id number] on: 20-Aug-2014 Fluvirin INJ Lot #: [id number] on: 15-Mar-2015 Fluzone Quadrivalent 0.5 ML Intramuscular Suspension Lot #: [id number] on: 20-Mar-2016 Pneumovax 23 25 MCG/0.5ML Injection Injectable Lot #: [id number] on: 08-Sep-2016 Fluzone High-Dose 0.5 ML Intramuscular Suspension Prefilled Syringe Lot #: [id number] on: 10-Mar-2017 Fluzone High-Dose 0.5 ML Intramuscular Suspension Prefilled Syringe Lot #: [id number] on: 17-Mar-2018 Shingrix 50 MCG/0.5ML Intramuscular Suspension Reconstituted on: 04-Apr-2018 Tdap on: 04-Apr-2018 Shingrix 50 MCG/0.5ML Intramuscular Suspension Reconstituted on: 04-Jun-2018 Fluzone High-Dose 0.5 ML Intramuscular Suspension Prefilled Syringe Lot #: [id number] on: 19-Apr-2019 Family History Name Dates Details [...] Method: Temporal Heart Rate 65 /min Status: [id number]:58 BP Systolic 141 mm[Hg] Status: BP Diastolic [...] day? Results Date Description Value Details :23 [QL] CMP W/EGFR GLUCOSE 98 mg/dl (Normal) Range: 65-139 Comments: Non-fasting reference interval UREA NITROGEN (BUN) 28 mg/dl (Above high threshold) Range: 7-25 CREATININE 1.16 mg/dl (Above high threshold) Range: 0.60-0.93 Comments: For patients >49 years of age, the reference limitfor Creatinine is approximately 13% higher for peopleidentified as -[place]. eGFR NON- 45 {ML/MIN/1.7} (Below low threshold) [...] 6-29 :23 [[facility]] D-DIMER, QUANTITATIVE D-DIMER, QUANTITATIVE 0.31 [...] 2006 11:295(2):199-207] For additional information, please refer to:http://education.[employer]/faq/NYL803(This link is being provided for informational/educational purposes only) :23 [[facility]] CBC (INCLUDES DIFF/PLT) WHITE BLOOD [...] 7.5-12.5 ABSOLUTE NEUTROPHILS 3548 {cells/uL} (Normal) Range: 4442-4068 ABSOLUTE LYMPHOCYTES 691 {cells/uL} (Below low threshold) [...] <0.01 Comments: For additional information, please refer tohttp://education.[employer]/faq/NVO285(This link is being provided for informational/educationalpurposes only.) [...] SHELBIE FELIPE M.D. On: 03-Nov-2019 9:15 Appointment; MANJU-, ECHO On: 21-Nov-2019 8:00 Appointment; RYAN SANABRIA M.D. On: 28-Nov-2019 10:00 Interventions Provided Labs/Procedures/Imaging* [QLH] CBC (INCLUDES DIFF/PLT); To Be Done: 07 Aug 2019 * [QLH] CMP W/EGFR; To Be Done: 07 Aug 2019 * [QLH] CULTURE, URINE, ROUTINE; To Be Done: 07 Aug 2019 * [QLH] URINALYSIS, COMPLETE; To Be Done: 07 Aug [...] 2 weeks for f/u * F/u sooner if symptoms change/worsen Instructions Name Dates Details Instructions not documented Encounters Appointment; ELIZABETH GONZALEZ M.D. Encounter Diagnosis: Problem not documented On: 09-Aug-2017 8:15 Appointment; ELIZABETH GONZALEZ M.D. Encounter Diagnosis: Problem not documented On: 06-Sep-2017 8:30 Appointment; ELIZABETH GONZALEZ M.D. Encounter Diagnosis: Problem not documented On: 08-Oct-2017 9:45 Appointment; EDMUND BUSCH P.AKevin Encounter Diagnosis: Problem not documented On: 08-Nov-2017 9:00 Appointment; EDMUND BUSCH P.AKevin Encounter Diagnosis: Problem not documented On: 06-Dec-2017 12:30 Appointment; EDMUND BUSCH P.A. Encounter Diagnosis: Problem not documented On: 03-Jan-2018 8:30 Appointment; RYAN SANABRIA M.D. Encounter Diagnosis: Problem not documented On: 11-Jan-2018 9:20 Appointment; EDMUND BUSCH P.AKevin Encounter Diagnosis: Problem not documented On: 02-Feb-2018 8:15 Appointment; RAJ OTT P.A. Encounter Diagnosis: Problem not documented On: 08-Feb-2018 10:30 Appointment; EDMUND BUSCH, P.AKevin Encounter Diagnosis: Problem not documented On: 15-Feb-2018 9:30 Appointment; EDMUND BUSCH, P.AKevin Encounter Diagnosis: Problem not documented On: 17-Mar-2018 8:45 Appointment; EDMUND BUSCH P.AKevin Encounter Diagnosis: Problem not documented On: 31-Mar-2018 8:00 Appointment; ELIZABETH GONZALEZ M.D. Encounter Diagnosis: Problem not documented On: 06-Apr-2018 9:30 Appointment; ELIZABETH GONZALEZ M.D. Encounter Diagnosis: Problem not documented On: 06-Apr-2018 9:30 Appointment; EDMUND BUSCH, P.AKevin Encounter Diagnosis: Problem not documented On: 02-May-2018 7:30 Appointment; EDMUND BUSCH, P.AKevin Encounter Diagnosis: Problem not documented On: 09-May-2018 8:15 Appointment; EDMUND BUSCH P.A. Encounter Diagnosis: Problem not documented On: 30-May-2018 8:15 Appointment; RADHA HERNANDEZ NP Encounter Diagnosis: Problem not documented On: 13-Jun-2018 8:00 Appointment; EDMUND BUSCH PJosué Encounter Diagnosis: Problem not documented On: 29-Jun-2018 8:00 Appointment; RYAN SANABRIA M.D. Encounter Diagnosis: Problem not documented On: 15-Jul-2018 9:20 Appointment; EDMUND BUSCH P.A. Encounter Diagnosis: Problem not documented On: 29-Jul-2018 15:00 Appointment; EDMUND BUSCH P.AKevin Encounter Diagnosis: Problem not documented On: 29-Aug-2018 8:15 Appointment; RYAN SANABRIA M.D. Encounter Diagnosis: Problem not documented On: 30-Aug-2018 10:00 [facility]ointment; [facility] Encounter Diagnosis: Problem not documented On: 30-Aug-2018 [...] documented On: 31-Oct-2018 9:30 Appointment; EDMUND BUSCH PKevinAKevin Encounter Diagnosis: Problem not documented On: 14-Nov-2018 11:15 Appointment; EDMUND BUSCH P.AKevin Encounter Diagnosis: Problem not documented On: 01-Dec-2018 10:30 Appointment; RYAN SANABRIA M.D. Encounter Diagnosis: Problem not documented On: 07-Dec-2018 13:40 Appointment; EDMUND BUSCH P.AKevin Encounter Diagnosis: Problem not documented On: 26-Dec-2018 7:30 Appointment; EDMUND BUSCH P.A. Encounter Diagnosis: Problem not documented On: 25-Jan-2019 7:30 Appointment; MANJU-MS, HOLTER Encounter Diagnosis: Problem not documented On: 13-Feb-2019 14:00 Appointment; MICHEAL HERNANDEZ P.A. Encounter Diagnosis: Problem not documented On: 27-Feb-2019 9:00 Appointment; LATRICEORE-MS, ECHO Encounter Diagnosis: Problem not documented On: [...]
--- OUTSIDE RECORDS SUMMARY | 2019-08-12 10:06 | XMS REPORT | Summary of Care ---
Author Author Sheila Clark M.A. Unknown Address [facility] Phone Unavailable Care Team Providers Care Vehicle Glass Technician Name Role Phone ELLY Gao, RYAN Unavailable Unavailable RAJ MATTHEW Unavailable Unavailable NURIS Gao, CELI Unavailable Sola GONZALEZ MD [place], ELIZABETH PALM Unavailable Unavailable NURIS PAINTER, CELI Senior Unavailable Unavailable CARLOS Gao, ELIZABETH Unavailable Unavailable MARY DREDGING INSPECTOR, RADHA Unavailable Unavailable Elly PAINTER, Ryan Unavailable Unavailable CARLOS PAINTER, ELIZABETH ANTHONY Unavailable Unavailable EVE BARRERA [place], SHAHLA Gonzalez Unavailable Unavailable NITIN PAINTER, SANDRA Obregon Unavailable Unavailable NARAYAN HYDEC, EDMUND Unavailable Unavailable TRU PA [place], RAJ FRAIRE Unavailable Unavailable MATTEO PAINTER [...] Z78.0) Status: Active Atherosclerotic heart disease of [place] coronary artery without angina pectoris (414.01, I25.10) [...] Tuesdays & Fridays take 2 po qd. (3-3-5-2-4-2-2) * Quantity: 90 Refills: 0 RAJ MATTHEW [...] Z87.440) Status: Resolved Procedures Procedure Dates Details [QL] HEPATIC FUNCTION PANEL Date: 26-Jun-2019 History of Bladder Procedures Completed History of Tonsillectomy Completed History of Shoulder Surgery Completed History of Arthroscopy Knee Completed History of Cholecystectomy Completed 16-Jul-2016 Immunization Name Dates Details Zoster (Zostavax) on: Jul-2007 Hepatitis A on: 25-Aug-2010 Influenza on: 10-Mar-2011 Fluzone INJ Lot #: [id number] on: 20-Mar-2013 Influenza on: 04-Apr-2014 Prevnar 13 Intramuscular Suspension Lot #: [id number] on: 20-Aug-2014 Fluvirin INJ Lot #: [id number] on: 15-Mar-2015 Fluzone Quadrivalent 0.5 ML Intramuscular Suspension Lot #: [id number] on: 20-Mar-2016 Pneumovax 23 25 MCG/0.5ML Injection Injectable Lot #: [id number] on: 08-Sep-2016 Fluzone High-Dose 0.5 ML Intramuscular Suspension Prefilled Syringe Lot #: [id number] on: 10-Mar-2017 Fluzone High-Dose 0.5 ML Intramuscular Suspension Prefilled Syringe Lot #: [id number] on: 17-Mar-2018 Shingrix 50 MCG/0.5ML Intramuscular Suspension Reconstituted on: 04-Apr-2018 Tdap on: 04-Apr-2018 Shingrix 50 MCG/0.5ML Intramuscular Suspension Reconstituted on: 04-Jun-2018 Fluzone High-Dose 0.5 ML Intramuscular Suspension Prefilled Syringe Lot #: [id number] on: 19-Apr-2019 Family History Name Dates Details [...] Method: Temporal Heart Rate 65 /min Status: :58 BP Systolic 141 mm[Hg] Status: BP [...] a day? Results Date Description Value Details [id number] [[facility]] CMP W/EGFR GLUCOSE 98 mg/dl (Normal) Range: 65-139 Comments: Non-fasting reference interval UREA NITROGEN (BUN) 28 mg/dl (Above high threshold) Range: 7-25 CREATININE 1.16 mg/dl (Above high threshold) Range: 0.60-0.93 Comments: For patients >49 years of age, the reference limitfor Creatinine is approximately 13% higher for peopleidentified as -Ethiopian. eGFR NON- 45 {ML/MIN/1.7} (Below low threshold) [...] u/l (Above high threshold) Range: 6-29 :23 [QL] D-DIMER, QUANTITATIVE D-DIMER, QUANTITATIVE 0.31 {mcg/mL_FEU} (Normal) [...] 2006 11:295(2):199-207] For additional information, please refer to:http://education.[employer]/faq/OSD417(This link is being provided for informational/educational purposes only) :23 [[facility]] CBC (INCLUDES DIFF/PLT) WHITE BLOOD [...] 7.5-12.5 ABSOLUTE NEUTROPHILS 3548 {cells/uL} (Normal) Range: 2104-8168 ABSOLUTE LYMPHOCYTES 691 {cells/uL} (Below low threshold) [...] <0.01 Comments: For additional information, please refer tohttp://education.[employer]/faq/NVY426(This link is being provided for informational/educationalpurposes only.) [...] office) PT 32.5 (Normal) INR 2.7 (Normal) Plan of Care Name Dates Details Planned Observations Planned Goals not documented Planned Encounters Appointment; CELI LAWLER M.D. On: 10-Aug-2019 8:15 Appointment; SHELBIE FELIPE M.D. On: 03-Nov-2019 9:15 Appointment; JOSÉ LEBLANC On: 21-Nov-2019 8:00 Appointment; RYAN SANABRIA M.D. On: 28-Nov-2019 10:00 Interventions Provided Labs/Procedures/Imaging* [O] PT/INR (in office); Done: 07 Aug 2019 Plan* HTN - uncontrolled; decreased fludrocortisone to 1 PO QOD x 1 week, then 1 PO every 3rd day; f/u 2 weeks Instructions Name Dates Details Instructions not documented Encounters Appointment; ELIZABETH GONZALEZ M.D. Encounter Diagnosis: Problem not documented On: 09-Aug-2017 8:15 Appointment; ELIZABETH GONZALEZ M.D. Encounter Diagnosis: Problem not documented On: 06-Sep-2017 8:30 Appointment; ELIZABETH GONZALEZ M.D. Encounter Diagnosis: Problem not documented On: 08-Oct-2017 9:45 Appointment; EDMUND BUSCH PKevinAKevin Encounter Diagnosis: Problem not documented On: 08-Nov-2017 9:00 Appointment; EMDUND BUSCH P.AKevin Encounter Diagnosis: Problem not documented [...] Problem not documented On: 25-Jan-2019 7:30 Appointment; MANJUTabatha, HOLTER Encounter Diagnosis: Problem not documented On: 13-Feb-2019 14:00 Appointment; MICHEAL HERNANDEZ P.A. Encounter Diagnosis: Problem not documented On: 27-Feb-2019 9:00 Appointment; MANJUTabatha, ECHO Encounter Diagnosis: Problem not documented On: [...]
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
--- OUTSIDE RECORDS SUMMARY | 2019-08-12 10:07 | XMS REPORT | Summary of Care ---
Author Author [facility] Address [address] [place] [address] Phone Unavailable Care Team Providers Care Clinical Informatics Specialist Name Role Phone ELLY Gao, RYAN Unavailable Unavailable TRU Cole, RAJ Unavailable Unavailable NURIS Gao, CELI Unavailable Sola GONZALEZ MD MD, ELIZABETH PALM Unavailable Unavailable NURIS PAINTER, CELI Senior Unavailable Unavailable CARLOS Gao, ELIZABETH Unavailable Unavailable MARY WAREHOUSE ENGINEER, RADHA Unavailable Unavailable Elly PAINTER, Ryan Unavailable Unavailable CARLOS PAINTER, ELIZABETH ANTHONY Unavailable Unavailable EVE BARRERA MD, SHAHLA Gonzalez Unavailable Unavailable NITIN PAINTER, SANDRA Obregon Unavailable Unavailable NARAYAN CERVANTES, EDMUND Unavailable Unavailable TRU MORATAYA MD, RAJ FRAIRE Unavailable Unavailable MATTEO PAINTER MD, SHELBIE Unavailable Unavailable Unavailable Unavailable Functional Status [...] M79.609) Status: Active Atherosclerotic heart disease of [place] coronary artery without angina pectoris (414.01, I25.10) [...] Tuesdays & Fridays take 2 po qd. (2-9-8-2-4-2-2) * Quantity: 90 Refills: 0 RAJ MATTHEW [...] Details [QL] HEPATIC FUNCTION PANEL Date: 26-Jun-2019 [[facility]] CULTURE, URINE, ROUTINE Date: 07-Aug-2019 [[facility]] URINALYSIS, COMPLETE Date: 07-Aug-2019 History of Bladder Procedures Completed History of Tonsillectomy Completed History of Cholecystectomy Completed 16-Jul-2016 History of Arthroscopy Knee Completed History of Shoulder Surgery Completed Immunization Name Dates Details Zoster (Zostavax) on: Jul-2007 Hepatitis A on: 25-Aug-2010 Influenza on: 10-Mar-2011 Fluzone INJ Lot #: [id number] on: 20-Mar-2013 Influenza on: 04-Apr-2014 Prevnar 13 Intramuscular Suspension Lot #: [id number] on: 20-Aug-2014 Fluvirin INJ Lot #: [id number] on: 15-Mar-2015 Fluzone Quadrivalent 0.5 ML Intramuscular Suspension Lot #: [id number] on: 20-Mar-2016 Pneumovax 23 25 MCG/0.5ML Injection Injectable Lot #: [id number] on: 08-Sep-2016 Fluzone High-Dose 0.5 ML Intramuscular Suspension Prefilled Syringe Lot #: [id number] on: 10-Mar-2017 Fluzone High-Dose 0.5 ML Intramuscular Suspension Prefilled Syringe Lot #: [id number] on: 17-Mar-2018 Shingrix 50 MCG/0.5ML Intramuscular Suspension Reconstituted on: 04-Apr-2018 Tdap on: 04-Apr-2018 Shingrix 50 MCG/0.5ML Intramuscular Suspension Reconstituted on: 04-Jun-2018 Fluzone High-Dose 0.5 ML Intramuscular Suspension Prefilled Syringe Lot #: [id number] on: 19-Apr-2019 Family History Name Dates Details [...] is approximately 13% higher for peopleidentified as -Algerian. eGFR NON- 45 {ML/MIN/1.7} (Below low threshold) [...] u/l (Above high threshold) Range: 6-29 :23 [[facility]] D-DIMER, QUANTITATIVE D-DIMER, QUANTITATIVE 0.31 [...] 2006 11:295(2):199-207] For additional information, please refer to:http://education.[employer]ite.[employer]/faq/GEC574(This link is being provided for informational/educational purposes only) :23 [[facility]] CBC (INCLUDES DIFF/PLT) WHITE BLOOD [...] 7.5-12.5 ABSOLUTE NEUTROPHILS 3548 {cells/uL} (Normal) Range: 6787-9658 ABSOLUTE LYMPHOCYTES 691 {cells/uL} (Below low threshold) [...] <0.01 Comments: For additional information, please refer tohttp://education.[employer]/faq/KMR506(This link is being provided for informational/educationalpurposes only.) [...] URINE yellow (Normal) APPEARANCE cloudy (Abnormal) :56 [[facility]] CMP W/EGFR GLUCOSE 100 mg/dl (Above high [...] is approximately 13% higher for peopleidentified as -Algerian. eGFR NON- 49 {ML/MIN/1.7} (Below low threshold) [...] ALT 21 u/l (Normal) Range: 6-29 :56 [[facility]] CBC (INCLUDES DIFF/PLT) WHITE BLOOD [...] 7.5-12.5 ABSOLUTE NEUTROPHILS 2512 {cells/uL} (Normal) Range: 4157-3186 ABSOLUTE LYMPHOCYTES 523 {cells/uL} (Below low threshold) Range: 850-3900 ABSOLUTE MONOCYTES 534 {cells/uL} (Normal) Range: 200-950 ABSOLUTE EOSINOPHILS 273 {cells/uL} (Normal) Range: 15-500 ABSOLUTE BASOPHILS 59 {cells/uL} (Normal) Range: 0-200 NEUTROPHILS 64.4 % (Normal) LYMPHOCYTES 13.4 % (Normal) MONOCYTES 13.7 % (Normal) EOSINOPHILS 7.0 % (Normal) BASOPHILS 1.5 % (Normal) 07-Aug-20198:56 [[facility]] VITAMIN B12 Comments: REPORT COMMENT:FASTING:YES VITAMIN B12 [...] Problem not documented On: 30-Aug-2018 10:00 [facility]ointment[facility] En[facility] Diagnosis: Problem not documented On: [...]
--- OUTSIDE RECORDS SUMMARY | 2019-08-12 10:07 | XMS REPORT | Summary of Care ---
Author Author Flako Parikh, Joy Ayala Unknown Address [facility] Phone Unavailable Care Team Providers Care Grey Roll Man Name Role Phone ELLY Gao, RYAN Unavailable Unavailable TRU Cole, RAJ Unavailable Unavailable NURIS Gao, CELI Unavailable Sola GONZALEZ MD [place], ELIZABETH PALM Unavailable Unavailable NURIS PAINTER, CELI Senior Unavailable Unavailable CARLOS Gao, ELIZABETH Selby Unavailable MARY PAPER TWISTER TENDER, RADHA Unavailable Unavailable Elly PAINTER, Ryan Unavailable Unavailable CARLOS PAINTER, ELIZABETH ANTHONY Unavailable Unavailable EVE BARRERA [place], SHAHLA Gonzalez Unavailable Unavailable NITIN PAINTER, SANDRA Obregon Unavailable Unavailable NARAYAN CERVANTES, EDMUND Unavailable Unavailable TRU PA [place], RAJ FRAIRE Unavailable Unavailable MATTEO PAINTER [place], SHELBIE Unavailable Unavailable Unavailable Unavailable Functional Status [...] Z78.0) Status: Active Atherosclerotic heart disease of [place] coronary artery without angina pectoris (414.01, I25.10) [...] Tuesdays & Fridays take 2 po qd. (8-5-5-2-4-2-2) * Quantity: 90 Refills: 0 RAJ MATTHEW [...] Influenza on: 10-Mar-2011 Fluzone INJ Lot #: [id number] on: 20-Mar-2013 Influenza on: 04-Apr-2014 Prevnar 13 Intramuscular Suspension Lot #: [id number] on: 20-Aug-2014 Fluvirin INJ Lot #: [id number] on: 15-Mar-2015 Fluzone Quadrivalent 0.5 ML Intramuscular Suspension Lot #: [id number] on: 20-Mar-2016 Pneumovax 23 25 MCG/0.5ML Injection Injectable Lot #: [id number] on: 08-Sep-2016 Fluzone High-Dose 0.5 ML Intramuscular Suspension Prefilled Syringe Lot #: [id number] on: 10-Mar-2017 Fluzone High-Dose 0.5 ML Intramuscular Suspension Prefilled Syringe Lot #: [id number] on: 17-Mar-2018 Shingrix 50 MCG/0.5ML Intramuscular Suspension Reconstituted on: 04-Apr-2018 Tdap on: 04-Apr-2018 Shingrix 50 MCG/0.5ML Intramuscular Suspension Reconstituted on: 04-Jun-2018 Fluzone High-Dose 0.5 ML Intramuscular Suspension Prefilled Syringe Lot #: [id number] on: 19-Apr-2019 Family History Name Dates Details [...] Date Description Value Details :23 [[facility]] CMP W/EGFR GLUCOSE 98 mg/dl (Normal) Range: 65-139 Comments: Non-fasting reference interval UREA NITROGEN (BUN) 28 mg/dl (Above high threshold) Range: 7-25 CREATININE 1.16 mg/dl (Above high threshold) Range: 0.60-0.93 Comments: For patients >49 years of age, the reference limitfor Creatinine is approximately 13% higher for peopleidentified as -Guamanian. eGFR NON- 45 {ML/MIN/1.7} (Below low threshold) [...] high threshold) Range: 6-29 :23 [[facility]] D-DIMER, QUANTITATIVE D-DIMER, QUANTITATIVE 0.31 {mcg/mL_FEU} (Normal) [...] 2006 11:295(2):199-207] For additional information, please refer to:http://education.CellScape/faq/ZKG995(This link is being provided for informational/educational purposes only) :23 [[facility]] CBC (INCLUDES DIFF/PLT) WHITE BLOOD CELL COUNT [...] 7.5-12.5 ABSOLUTE NEUTROPHILS 3548 {cells/uL} (Normal) Range: 4529-1363 ABSOLUTE LYMPHOCYTES 691 {cells/uL} (Below low threshold) [...] <0.01 Comments: For additional information, please refer tohttp://education.CellScape/faq/MOQ705(This link is being provided for informational/educationalpurposes only.) [...] Dipstick (In Office); Done: 07 Aug 2019 Follow-ups/Referrals* Neurology Referral; To Be Done: 07 Aug 2019 Plan* HTN - [...] Problem not documented On: 09-May-2018 8:15 Appointment; EDMNUD BUSCH LionelAKevin Encounter Diagnosis: Problem not documented On: 30-May-2018 [...] not documented On: 10-Oct-2018 9:45 Appointment; SHAHLA PARDO [address] Encounter Diagnosis: Problem not documented On: [...] Problem not documented On: 27-Feb-2019 9:00 Appointment; MANJU-, ECHO Encounter Diagnosis: Problem not documented On: [...]
--- OUTSIDE RECORDS SUMMARY | 2019-08-12 10:07 | XMS REPORT | Summary of Care ---
Author Author RAJ MATTHEW Unknown Address Unknown Phone Unavailable Care Team Providers Care Haircutter Name Role Phone ELLY Gao, RYAN Unavailable Unavailable RAJ MATTHEW Unavailable Unavailable NURIS Gao, CELI Unavailable Sola GONZALEZ MD [place], ELIZABETH PALM Unavailable Unavailable NURIS PAINTER, CELI Senior Unavailable Unavailable CARLOS Gao, ELIZABETH Unavailable Unavailable MARY COLUNGAP, RADHA Unavailable Unavailable Elly PAINTER, Ryan Unavailable Unavailable CARLOS PAINTER, ELIZABETH ANTHONY Unavailable Unavailable EVE BARRERA [place], SHAHLA Gonzalez Unavailable Unavailable NITIN PAINTER, SANDRA Obregon Unavailable Unavailable NARAYAN CERVANTES, EDMUND Unavailable Unavailable TRU MORATAYA [place], RAJ FRAIRE Unavailable Unavailable MATTEO PAINTER [place], SHELBIE Unavailable Unavailable Unavailable Unavailable Functional Status [...] 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 Active Warfarin Sodium 2 MG Oral Tablet TAKE 1 po per day, except on Tuesdays & Fridays take 2 po qd. (9-6-2-2-4-2-2) * Quantity: 90 Refills: 0 RAJ MATTHEW * Start : 15-Apr-2015 Active Simvastatin 20 MG Oral Tablet TAKE 1 TABLET NIGHTLY AT BEDTIME * Quantity: 90 Refills: 1 RYAN SANABRIA M.D. * Start : 15-Oct-2015 Active Multivitamins TABS TAKE 1 TABLET DAILY. * Refills: 0 M.A. Active Stool Softener TABS TAKE 1 TABLET TWICE DAILY * Refills: 0 M.A. Active Dulcolax Stool Softener CAPS ABOUT ONCE A WEEK, NEEDED * Refills: 0 M.A. Active Fiber Adult Gummies CHEW TAKE 2 TABLET DAILY * Refills: 0 M.A. Active Calcium + D TABS TAKE 1 TABLET TWICE DAILY * Refills: 0 M.A. Active Nitroglycerin 0.4 MG Sublingual Tablet Sublingual DISSOLVE 1 TABLET UNDER THE TONGUE NEEDED FOR CHEST PAIN. * Quantity: 30 Refills: 0 CELI LAWLER M.D. * Start : 07-Jul-2019 Active Fludrocortisone Acetate 0.1 MG Oral Tablet 1 PO QOD x 1 week, then 1 PO every third day * Quantity: 60 Refills: 1 RAJ MATTHEW [...] Z87.440) Status: Resolved Procedures Procedure Dates Details [[facility]] HEPATIC FUNCTION PANEL Date: 26-Jun-2019 [[facility]] CULTURE, URINE, ROUTINE Date: 07-Aug-2019 [[facility]] URINALYSIS, COMPLETE Date: 07-Aug-2019 History of Bladder Procedures Completed History of Tonsillectomy Completed History of Cholecystectomy Completed 16-Jul-2016 History of Arthroscopy Knee Completed History of Shoulder Surgery Completed Immunization Name Dates Details Zoster (Zostavax) on: Jul-2007 Hepatitis A on: 25-Aug-2010 Influenza on: 10-Mar-2011 Fluzone INJ Lot #: [id number] on: 20-Mar-2013 Influenza on: 04-Apr-2014 Prevnar 13 Intramuscular Suspension Lot #: [id number] on: 20-Aug-2014 Fluvirin INJ Lot #: [id number] on: 15-Mar-2015 Fluzone Quadrivalent 0.5 ML Intramuscular Suspension Lot #: [id number] on: 20-Mar-2016 Pneumovax 23 25 MCG/0.5ML Injection Injectable Lot #: [id number] on: 08-Sep-2016 Fluzone High-Dose 0.5 ML Intramuscular Suspension Prefilled Syringe Lot #: [id number] on: 10-Mar-2017 Fluzone High-Dose 0.5 ML Intramuscular Suspension Prefilled Syringe Lot #: [id number] on: 17-Mar-2018 Shingrix 50 MCG/0.5ML Intramuscular Suspension Reconstituted on: 04-Apr-2018 Tdap on: 04-Apr-2018 Shingrix 50 MCG/0.5ML Intramuscular Suspension Reconstituted on: 04-Jun-2018 Fluzone High-Dose 0.5 ML Intramuscular Suspension Prefilled Syringe Lot #: [id number] on: 19-Apr-2019 Family History Name Dates Details [...] is approximately 13% higher for peopleidentified as -Malagasy. eGFR NON- 45 {ML/MIN/1.7} (Below low threshold) [...] u/l (Above high threshold) Range: 6-29 :23 [[facility]] D-DIMER, QUANTITATIVE D-DIMER, QUANTITATIVE 0.31 {mcg/mL_FEU} [...] 2006 11:295(2):199-207] For additional information, please refer to:http://education.GoComm.Control de Pacientes/faq/TLN344(This link is being provided for informational/educational purposes only) :23 [[facility]] CBC (INCLUDES DIFF/PLT) WHITE BLOOD CELL COUNT [...] 7.5-12.5 ABSOLUTE NEUTROPHILS 3548 {cells/uL} (Normal) Range: 5361-1640 ABSOLUTE LYMPHOCYTES 691 {cells/uL} (Below low threshold) [...] <0.01 Comments: For additional information, please refer tohttp://education.The Point/faq/ABT405(This link is being provided for informational/educationalpurposes only.) [...] URINE yellow (Normal) APPEARANCE cloudy (Abnormal) :56 [[facility]] CMP W/EGFR GLUCOSE 100 mg/dl (Above [...] is approximately 13% higher for peopleidentified as -Malagasy. eGFR NON- 49 {ML/MIN/1.7} (Below low threshold) [...] ALT 21 u/l (Normal) Range: 6-29 :56 [[facility]] CBC (INCLUDES DIFF/PLT) WHITE BLOOD CELL [...] 7.5-12.5 ABSOLUTE NEUTROPHILS 2512 {cells/uL} (Normal) Range: 1174-8618 ABSOLUTE LYMPHOCYTES 523 {cells/uL} (Below low threshold) Range: 850-3900 ABSOLUTE MONOCYTES 534 {cells/uL} (Normal) Range: 200-950 ABSOLUTE EOSINOPHILS 273 {cells/uL} (Normal) Range: 15-500 ABSOLUTE BASOPHILS 59 {cells/uL} (Normal) Range: 0-200 NEUTROPHILS 64.4 % (Normal) LYMPHOCYTES 13.4 % (Normal) MONOCYTES 13.7 % (Normal) EOSINOPHILS 7.0 % (Normal) BASOPHILS 1.5 % (Normal) 07-Aug-20198:56 [[facility]] VITAMIN B12 Comments: REPORT COMMENT:FASTING:YES VITAMIN [...] not documented On: 21-Sep-2018 18:00 Appointment; EDMUND BSUCH P.A. Encounter Diagnosis: Problem not documented On: [...] Problem not documented On: 29-May-2019 10:00 Appointment; TRU, RAJ, P.A. Encounter Diagnosis: Problem not documented On: [...]
--- OUTSIDE RECORDS SUMMARY | 2019-08-12 10:08 | XMS REPORT | Summary of Care ---
Author Author [facility] Address [address] [place] [address] Phone Unavailable Care Team Providers Care [facility] Mortician Name Role Phone ELLY Gao, RYAN Unavailable Unavailable TRU P.AKevin, RAJ Unavailable Unavailable NURIS Gao, CELI Unavailable Sola GONZALEZ MD [place], ELIZABETH PALM Unavailable Unavailable NURIS PAINTER, CELI Senior Unavailable Unavailable CARLOS Gao, ELIZABETH Unavailable Unavailable MARY INFORMATION SECURITY CONSULTANT, RADHA Unavailable Unavailable Elly PAINTER, Ryan Unavailable Unavailable CARLOS PAINTER, ELIZABETH ANTHONY Unavailable Unavailable EVE BARRERA [place], SHAHLA Gonzalez Unavailable Unavailable NITIN PAINTER, SANDRA Obregon Unavailable Unavailable NARAYAN CERVANTES, EDMUND Unavailable Unavailable TRU PA [place], RAJ FRAIRE Unavailable Unavailable MATTEO PAINTER [place], SHELBIE Unavailable Unavailable Unavailable Unavailable Functional Status [...] Z78.0) Status: Active 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 (6-1-0-2-4-2-2) * Quantity: 90 Refills: 0 RAJ MATTHEW [...] Z87.440) Status: Resolved Procedures Procedure Dates Details [[facility]] HEPATIC FUNCTION PANEL Date: 26-Jun-2019 History of Bladder Procedures Completed History of Tonsillectomy Completed History of Shoulder Surgery Completed History of Arthroscopy Knee Completed History of Cholecystectomy Completed 16-Jul-2016 Immunization Name Dates Details Zoster (Zostavax) on: Jul-2007 Hepatitis A on: 25-Aug-2010 Influenza on: 10-Mar-2011 Fluzone INJ Lot #: [id number] on: 20-Mar-2013 Influenza on: 04-Apr-2014 Prevnar 13 Intramuscular Suspension Lot #: [id number] on: 20-Aug-2014 Fluvirin INJ Lot #: [id number] on: 15-Mar-2015 Fluzone Quadrivalent 0.5 ML Intramuscular Suspension Lot #: [id number] on: 20-Mar-2016 Pneumovax 23 25 MCG/0.5ML Injection Injectable Lot #: [id number] on: 08-Sep-2016 Fluzone High-Dose 0.5 ML Intramuscular Suspension Prefilled Syringe Lot #: [id number] on: 10-Mar-2017 Fluzone High-Dose 0.5 ML Intramuscular Suspension Prefilled Syringe Lot #: [id number] on: 17-Mar-2018 Shingrix 50 MCG/0.5ML Intramuscular Suspension Reconstituted on: 04-Apr-2018 Tdap on: 04-Apr-2018 Shingrix 50 MCG/0.5ML Intramuscular Suspension Reconstituted on: 04-Jun-2018 Fluzone High-Dose 0.5 ML Intramuscular Suspension Prefilled Syringe Lot #: [id number] on: 19-Apr-2019 Family History Name Dates Details [...] day? Results Date Description Value Details :23 [[facility]] CMP W/EGFR GLUCOSE 98 mg/dl (Normal) Range: 65-139 Comments: Non-fasting reference interval UREA NITROGEN (BUN) 28 mg/dl (Above high threshold) Range: 7-25 CREATININE 1.16 mg/dl (Above high threshold) Range: 0.60-0.93 Comments: For patients >49 years of age, the reference limitfor Creatinine is approximately 13% higher for peopleidentified as -Mongolian. eGFR NON- 45 {ML/MIN/1.7} (Below low threshold) [...] u/l (Above high threshold) Range: 6-29 :23 [[facility]] D-DIMER, QUANTITATIVE D-DIMER, QUANTITATIVE 0.31 {mcg/mL_FEU} [...] 2006 11:295(2):199-207] For additional information, please refer to:http://education.Fluidigm/faq/MSP160(This link is being provided for informational/educational purposes only) :23 [[facility]] CBC (INCLUDES DIFF/PLT) WHITE BLOOD CELL [...] 7.5-12.5 ABSOLUTE NEUTROPHILS 3548 {cells/uL} (Normal) Range: 1326-8040 ABSOLUTE LYMPHOCYTES 691 {cells/uL} (Below low threshold) [...] <0.01 Comments: For additional information, please refer tohttp://education.Fluidigm/faq/KLM395(This link is being provided for informational/educationalpurposes only.) [...] URINE yellow (Normal) APPEARANCE cloudy (Abnormal) :56 [[facility]] CMP W/EGFR GLUCOSE 100 mg/dl (Above high [...] is approximately 13% higher for peopleidentified as -Mongolian. eGFR NON- 49 {ML/MIN/1.7} (Below low threshold) [...] 10-35 ALT 21 u/l (Normal) Range: 6-29 3-:56 [[facility]] CBC (INCLUDES DIFF/PLT) WHITE BLOOD CELL [...] 7.5-12.5 ABSOLUTE NEUTROPHILS 2512 {cells/uL} (Normal) Range: 5551-8294 ABSOLUTE LYMPHOCYTES 523 {cells/uL} (Below low threshold) Range: 850-3900 ABSOLUTE MONOCYTES 534 {cells/uL} (Normal) Range: 200-950 ABSOLUTE EOSINOPHILS 273 {cells/uL} (Normal) Range: 15-500 ABSOLUTE BASOPHILS 59 {cells/uL} (Normal) Range: 0-200 NEUTROPHILS 64.4 % (Normal) LYMPHOCYTES 13.4 % (Normal) MONOCYTES 13.7 % (Normal) EOSINOPHILS 7.0 % (Normal) BASOPHILS 1.5 % (Normal) :56 [[facility]] VITAMIN B12 Comments: REPORT COMMENT:FASTING:YES VITAMIN B12 1343 pg/ml (Above high threshold) Range: 200-1100 :18 [[facility]] URINALYSIS, COMPLETE COLOR YELLOW (Normal) Range: YELLOW APPEARANCE CLOUDY (Abnormal) Range: CLEAR SPECIFIC GRAVITY 1.012 (Normal) Range: 1.001-1.035 PH 7.5 (Normal) Range: 5.0-8.0 GLUCOSE NEGATIVE (Normal) Range: NEGATIVE BILIRUBIN NEGATIVE (Normal) Range: NEGATIVE KETONES NEGATIVE (Normal) Range: NEGATIVE OCCULT BLOOD NEGATIVE (Normal) Range: NEGATIVE PROTEIN NEGATIVE (Normal) Range: NEGATIVE NITRITE NEGATIVE (Normal) Range: NEGATIVE LEUKOCYTE ESTERASE NEGATIVE (Normal) Range: NEGATIVE WBC NONE SEEN {/HPF} (Normal) Range: < OR=5 RBC 0-2 {/HPF} (Normal) Range: < OR=2 SQUAMOUS EPITHELIAL CELLS NONE SEEN {/HPF} (Normal) Range: < OR=5 BACTERIA NONE SEEN {/HPF} (Normal) Range: NONE SEEN HYALINE CAST NONE SEEN {/LPF} (Normal) Range: NONE SEEN 07-Aug-20198:18 [[facility]] CULTURE, URINE, ROUTINE CULTURE (Abnormal) Comments: CULTURE, URINE, ROUTINE Micro Number: [id number] Test Status: Final Specimen Source: URINE Specimen Quality: Adequate Result: 10,000-50,000 CFU/mL of Streptococcus viridans group May represent colonizers from external and internal genitalia. No further testing (including susceptibility) will be performed. Plan of Care Name Dates Details Planned [...] documented On: 08-Oct-2017 9:45 Appointment; EDMUND BUSCH, P.AKevin Encounter Diagnosis: Problem not documented On: 08-Nov-2017 9:00 Appointment; EDMUND BUSCH, P.AKevin Encounter Diagnosis: Problem not documented On: 06-Dec-2017 12:30 Appointment; EDMUND BUSCH, P.AKevin Encounter Diagnosis: Problem not documented On: 03-Jan-2018 8:30 Appointment; RYAN SANABRIA M.D. Encounter Diagnosis: Problem not documented On: 11-Jan-2018 9:20 Appointment; EDMUND BUSCH, P.AKevin Encounter Diagnosis: Problem [...] Problem not documented On: 29-Aug-2018 8:15 Appointment; RAYN SANABRIA M.D. Encounter Diagnosis: Problem not documented On: 30-Aug-2018 10:00 [facility] En[facility] Diagnosis: Problem not documented On: 30-Aug-2018 [...]
--- OUTSIDE RECORDS SUMMARY | 2019-08-12 10:08 | XMS REPORT | Summary of Care ---
Author Author [facility] Address [address] [place] [address] Phone Unavailable Care Team Providers Care Rehabilitation Specialist Name Role Phone ELLY Gao, RYAN Unavailable Unavailable TRU Cole, RAJ Unavailable Unavailable NURIS Gao, CELI Unavailable Sola GONZALEZ MD [place], ELIZABETH PALM Unavailable Unavailable NURIS PAINTER, CELI Senior Unavailable Unavailable CARLOS Gao, ELIZABETH Unavailable Unavailable MARY FLUME WORKER, RADHA Unavailable Unavailable Elly PAINTER, Ryan Unavailable Unavailable CARLOS PAINTER, ELIZABETH ANTHONY Unavailable Unavailable EVE BARRERA [place], SHAHLA Gonzalez Unavailable Unavailable NITIN PAINTER, SANDRA Obregon Unavailable Unavailable NARAYAN CERVANTES, EDMUND Unavailable Unavailable TRU MORATAYA [place], RAJ FRAIRE Unavailable Unavailable MATTEO PAINTER [place], SHELBIE Unavailable Unavailable Unavailable Unavailable Functional Status [...] M79.609) Status: 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 (3-7-8-2-4-2-2) * Quantity: 90 Refills: 0 RAJ MATTHEW [...] Details [QL] HEPATIC FUNCTION PANEL Date: 26-Jun-2019 [[facility]] CULTURE, URINE, ROUTINE Date: 07-Aug-2019 [[facility]] URINALYSIS, COMPLETE Date: 07-Aug-2019 History of Bladder Procedures Completed History of Tonsillectomy Completed History of Cholecystectomy Completed 16-Jul-2016 History of Arthroscopy Knee Completed History of Shoulder Surgery Completed Immunization Name Dates Details Zoster (Zostavax) on: Jul-2007 Hepatitis A on: 25-Aug-2010 Influenza on: 10-Mar-2011 Fluzone INJ Lot #: [id number] on: 20-Mar-2013 Influenza on: 04-Apr-2014 Prevnar 13 Intramuscular Suspension Lot #: [id number] on: 20-Aug-2014 Fluvirin INJ Lot #: [id number] on: 15-Mar-2015 Fluzone Quadrivalent 0.5 ML Intramuscular Suspension Lot #: [id number] on: 20-Mar-2016 Pneumovax 23 25 MCG/0.5ML Injection Injectable Lot #: [id number] on: 08-Sep-2016 Fluzone High-Dose 0.5 ML Intramuscular Suspension Prefilled Syringe Lot #: [id number] on: 10-Mar-2017 Fluzone High-Dose 0.5 ML Intramuscular Suspension Prefilled Syringe Lot #: [id number] on: 17-Mar-2018 Shingrix 50 MCG/0.5ML Intramuscular Suspension Reconstituted on: 04-Apr-2018 Tdap on: 04-Apr-2018 Shingrix 50 MCG/0.5ML Intramuscular Suspension Reconstituted on: 04-Jun-2018 Fluzone High-Dose 0.5 ML Intramuscular Suspension Prefilled Syringe Lot #: [id number] on: 19-Apr-2019 Family History Name Dates Details [...] is approximately 13% higher for peopleidentified as -Filipino. eGFR NON- 45 {ML/MIN/1.7} (Below low threshold) [...] u/l (Above high threshold) Range: 6-29 :23 [[facility]] D-DIMER, QUANTITATIVE D-DIMER, QUANTITATIVE 0.31 {mcg/mL_FEU} (Normal) [...] 2006 11:295(2):199-207] For additional information, please refer to:http://education.Optimal Solutions Integration.Crocs/faq/ZUR550(This link is being provided for informational/educational purposes only) :23 [[facility]] CBC (INCLUDES DIFF/PLT) WHITE BLOOD CELL COUNT [...] 7.5-12.5 ABSOLUTE NEUTROPHILS 3548 {cells/uL} (Normal) Range: 2330-2641 ABSOLUTE LYMPHOCYTES 691 {cells/uL} (Below low threshold) [...] <0.01 Comments: For additional information, please refer tohttp://education.Novariant/faq/RUG162(This link is being provided for informational/educationalpurposes only.) [...] URINE yellow (Normal) APPEARANCE cloudy (Abnormal) :56 [[facility]] CMP W/EGFR GLUCOSE 100 mg/dl (Above high [...] is approximately 13% higher for peopleidentified as -Filipino. eGFR NON- 49 {ML/MIN/1.7} (Below low threshold) [...] ALT 21 u/l (Normal) Range: 6-29 :56 [[facility]] CBC (INCLUDES DIFF/PLT) WHITE BLOOD CELL COUNT [...] 7.5-12.5 ABSOLUTE NEUTROPHILS 2512 {cells/uL} (Normal) Range: 8280-4979 ABSOLUTE LYMPHOCYTES 523 {cells/uL} (Below low threshold) Range: 850-3900 ABSOLUTE MONOCYTES 534 {cells/uL} (Normal) Range: 200-950 ABSOLUTE EOSINOPHILS 273 {cells/uL} (Normal) Range: 15-500 ABSOLUTE BASOPHILS 59 {cells/uL} (Normal) Range: 0-200 NEUTROPHILS 64.4 % (Normal) LYMPHOCYTES 13.4 % (Normal) MONOCYTES 13.7 % (Normal) EOSINOPHILS 7.0 % (Normal) BASOPHILS 1.5 % (Normal) 07-Aug-20198:56 [[facility]] VITAMIN B12 Comments: REPORT COMMENT:FASTING:YES VITAMIN B12 [...] Problem not documented On: 30-Aug-2018 10:00 [facility]ointment; [facility] Encounter Diagnosis: Problem not documented On: [...] Problem not documented On: 06-May-2019 9:30 Appointment; EMDUND BUSCH P.A. Encounter Diagnosis: Problem not documented [...]
--- OUTSIDE RECORDS SUMMARY | 2019-08-12 10:08 | XMS REPORT | Summary of Care ---
Author Author RAJ MATTHEW Unknown Address Unknown Phone Unavailable Care Team Providers Care Cleaning Matron Name Role Phone ELLY Gao, RYAN Unavailable Unavailable RAJ MATTHEW Unavailable Unavailable NURIS [place], CELI Unavailable Sola GONZALEZ MD [place], ELIZABETH PALM Unavailable Unavailable NURIS PAINTER, CELI Senior Unavailable Unavailable CARLOS Gao, ELIZABETH Unavailable Unavailable MARY EQUIPMENT COORDINATOR, RADHA Unavailable Unavailable Elly PAINTER, Ryan Unavailable Unavailable CARLOS PAINTER, ELIZABETH ANTHONY Unavailable Unavailable EVE BARRERA [place], SHAHLA Gonzalez Unavailable Unavailable NITIN PAINTER, SANDRA Obregon Unavailable Unavailable NARAYAN CERVANTES, EDMUND Unavailable Unavailable TRU MORATAYA [place], RAJ FRAIRE Unavailable Unavailable MATTEO PAINTER [place], SHELBIE Unavailable Unavailable Unavailable Unavailable Functional Status [...] Z78.0) Status: Active 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 (5-6-2-2-4-2-2) * Quantity: 90 Refills: 0 RAJ MATTHEW [...] Z87.440) Status: Resolved Procedures Procedure Dates Details [[facility]] HEPATIC FUNCTION PANEL Date: 26-Jun-2019 History of Bladder Procedures Completed History of Tonsillectomy Completed History of Shoulder Surgery Completed History of Arthroscopy Knee Completed History of Cholecystectomy Completed 16-Jul-2016 Immunization Name Dates Details Zoster (Zostavax) on: Jul-2007 Hepatitis A on: 25-Aug-2010 Influenza on: 10-Mar-2011 Fluzone INJ Lot #: [id number] on: 20-Mar-2013 Influenza on: 04-Apr-2014 Prevnar 13 Intramuscular Suspension Lot #: [id number] on: 20-Aug-2014 Fluvirin INJ Lot #: [id number] on: 15-Mar-2015 Fluzone Quadrivalent 0.5 ML Intramuscular Suspension Lot #: [id number] on: 20-Mar-2016 Pneumovax 23 25 MCG/0.5ML Injection Injectable Lot #: [id number] on: 08-Sep-2016 Fluzone High-Dose 0.5 ML Intramuscular Suspension Prefilled Syringe Lot #: [id number] on: 10-Mar-2017 Fluzone High-Dose 0.5 ML Intramuscular Suspension Prefilled Syringe Lot #: [id number] on: 17-Mar-2018 Shingrix 50 MCG/0.5ML Intramuscular Suspension Reconstituted on: 04-Apr-2018 Tdap on: 04-Apr-2018 Shingrix 50 MCG/0.5ML Intramuscular Suspension Reconstituted on: 04-Jun-2018 Fluzone High-Dose 0.5 ML Intramuscular Suspension Prefilled Syringe Lot #: [id number] on: 19-Apr-2019 Family History Name Dates Details [...] day? Results Date Description Value Details :23 [[facility]] CMP W/EGFR GLUCOSE 98 mg/dl (Normal) Range: 65-139 Comments: Non-fasting reference interval UREA NITROGEN (BUN) 28 mg/dl (Above high threshold) Range: 7-25 CREATININE 1.16 mg/dl (Above high threshold) Range: 0.60-0.93 Comments: For patients >49 years of age, the reference limitfor Creatinine is approximately 13% higher for peopleidentified as -English. eGFR NON- 45 {ML/MIN/1.7} (Below low threshold) [...] u/l (Above high threshold) Range: 6-29 :23 [[facility]] D-DIMER, QUANTITATIVE D-DIMER, QUANTITATIVE 0.31 {mcg/mL_FEU} [...] 2006 11:295(2):199-207] For additional information, please refer to:http://education.Tribe/faq/XUI067(This link is being provided for informational/educational purposes only) :23 [[facility]] CBC (INCLUDES DIFF/PLT) WHITE BLOOD CELL [...] 7.5-12.5 ABSOLUTE NEUTROPHILS 3548 {cells/uL} (Normal) Range: 9283-9528 ABSOLUTE LYMPHOCYTES 691 {cells/uL} (Below low threshold) [...] <0.01 Comments: For additional information, please refer tohttp://education.Tribe/faq/VAI361(This link is being provided for informational/educationalpurposes only.) [...] URINE yellow (Normal) APPEARANCE cloudy (Abnormal) :56 [[facility]] CMP W/EGFR GLUCOSE 100 mg/dl (Above [...] is approximately 13% higher for peopleidentified as -English. eGFR NON- 49 {ML/MIN/1.7} (Below low threshold) [...] ALT 21 u/l (Normal) Range: 6-29 :56 [[facility]] CBC (INCLUDES DIFF/PLT) WHITE BLOOD CELL [...] 7.5-12.5 ABSOLUTE NEUTROPHILS 2512 {cells/uL} (Normal) Range: 8200-2541 ABSOLUTE LYMPHOCYTES 523 {cells/uL} (Below low threshold) Range: 850-3900 ABSOLUTE MONOCYTES 534 {cells/uL} (Normal) Range: 200-950 ABSOLUTE EOSINOPHILS 273 {cells/uL} (Normal) Range: 15-500 ABSOLUTE BASOPHILS 59 {cells/uL} (Normal) Range: 0-200 NEUTROPHILS 64.4 % (Normal) LYMPHOCYTES 13.4 % (Normal) MONOCYTES 13.7 % (Normal) EOSINOPHILS 7.0 % (Normal) BASOPHILS 1.5 % (Normal) :56 [[facility]] VITAMIN B12 Comments: REPORT COMMENT:FASTING:YES VITAMIN B12 1343 pg/ml (Above high threshold) Range: 200-1100 :18 [[facility]] URINALYSIS, COMPLETE COLOR YELLOW (Normal) Range: [...] SEEN {/LPF} (Normal) Range: NONE SEEN 07-Aug-20198:18 [[facility]] CULTURE, URINE, ROUTINE CULTURE (Abnormal) Comments: CULTURE, URINE, ROUTINE Micro Number: [id number] Test Status: Final Specimen Source: URINE Specimen [...] Problem not documented On: 30-Aug-2018 10:00 [facility] Encounter Diagnosis: Problem not documented On: 30-Aug-2018 [...]
--- OUTSIDE RECORDS SUMMARY | 2019-08-12 10:09 | XMS REPORT | Summary of Care ---
Author Author [place] [facility] Address [address] [place] [address] Phone Unavailable Care Team Providers Care Batch Weigher Name Role Phone ELLY Gao, RYAN Unavailable Unavailable TRU P.AKevin, RAJ Unavailable Unavailable NURIS Gao, CELI Unavailable Sola GONZALEZ MD [place], ELIZABETH PALM Unavailable Unavailable NURIS PAINTER, CELI Senior Unavailable Unavailable CARLOS Gao, ELIZABETH Unavailable Unavailable MARY TONE REGULATOR, RADHA Unavailable Unavailable Elly PAINTER, Ryan Unavailable Unavailable CARLOS PAINTER, ELIZABETH ANTHONY Unavailable Unavailable EVE BARRERA [place], SHAHLA Gonzalez Unavailable Unavailable NITIN PAINTER, SANDRA Obregon Unavailable Unavailable NARAYAN CERVANTES, EDMUND Unavailable Unavailable TRU PA [place], RAJ FRAIRE Unavailable Unavailable MATTEO PAINTER [place], SHELBIE Unavailable Unavailable Unavailable Unavailable Functional Status [...] 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 (7-0-9-2-4-2-2) * Quantity: 90 Refills: 0 RAJ MATTHEW [...] Z87.440) Status: Resolved Procedures Procedure Dates Details [[facility]] HEPATIC FUNCTION PANEL Date: 26-Jun-2019 History of Bladder Procedures Completed History of Tonsillectomy Completed History of Shoulder Surgery Completed History of Arthroscopy Knee Completed History of Cholecystectomy Completed 16-Jul-2016 Immunization Name Dates Details Zoster (Zostavax) on: Jul-2007 Hepatitis A on: 25-Aug-2010 Influenza on: 10-Mar-2011 Fluzone INJ Lot #: [id number] on: 20-Mar-2013 Influenza on: 04-Apr-2014 Prevnar 13 Intramuscular Suspension Lot #: [id number] on: 20-Aug-2014 Fluvirin INJ Lot #: [id number] on: 15-Mar-2015 Fluzone Quadrivalent 0.5 ML Intramuscular Suspension Lot #: [id number] on: 20-Mar-2016 Pneumovax 23 25 MCG/0.5ML Injection Injectable Lot #: [id number] on: 08-Sep-2016 Fluzone High-Dose 0.5 ML Intramuscular Suspension Prefilled Syringe Lot #: [id number] on: 10-Mar-2017 Fluzone High-Dose 0.5 ML Intramuscular Suspension Prefilled Syringe Lot #: [id number] on: 17-Mar-2018 Shingrix 50 MCG/0.5ML Intramuscular Suspension Reconstituted on: 04-Apr-2018 Tdap on: 04-Apr-2018 Shingrix 50 MCG/0.5ML Intramuscular Suspension Reconstituted on: 04-Jun-2018 Fluzone High-Dose 0.5 ML Intramuscular Suspension Prefilled Syringe Lot #: [id number] on: 19-Apr-2019 Family History Name Dates Details [...] day? Results Date Description Value Details :23 [[facility]] CMP W/EGFR GLUCOSE 98 mg/dl (Normal) Range: 65-139 Comments: Non-fasting reference interval UREA NITROGEN (BUN) 28 mg/dl (Above high threshold) Range: 7-25 CREATININE 1.16 mg/dl (Above high threshold) Range: 0.60-0.93 Comments: For patients >49 years of age, the reference limitfor Creatinine is approximately 13% higher for peopleidentified as -Ivorian. eGFR NON- 45 {ML/MIN/1.7} (Below low threshold) [...] u/l (Above high threshold) Range: 6-29 :23 [[facility]] D-DIMER, QUANTITATIVE D-DIMER, QUANTITATIVE 0.31 {mcg/mL_FEU} [...] 2006 11:295(2):199-207] For additional information, please refer to:http://education.BlueRonin/faq/LXL343(This link is being provided for informational/educational purposes only) :23 [[facility]] CBC (INCLUDES DIFF/PLT) WHITE BLOOD CELL [...] 7.5-12.5 ABSOLUTE NEUTROPHILS 3548 {cells/uL} (Normal) Range: 6961-2728 ABSOLUTE LYMPHOCYTES 691 {cells/uL} (Below low threshold) [...] <0.01 Comments: For additional information, please refer tohttp://education.BlueRonin/faq/GTF574(This link is being provided for informational/educationalpurposes only.) [...] is approximately 13% higher for peopleidentified as -Ivorian. eGFR NON- 49 {ML/MIN/1.7} (Below low threshold) [...] ALT 21 u/l (Normal) Range: 6-29 3-:56 [[facility]] CBC (INCLUDES DIFF/PLT) WHITE BLOOD CELL [...] 7.5-12.5 ABSOLUTE NEUTROPHILS 2512 {cells/uL} (Normal) Range: 0696-6510 ABSOLUTE LYMPHOCYTES 523 {cells/uL} (Below low threshold) Range: 850-3900 ABSOLUTE MONOCYTES 534 {cells/uL} (Normal) Range: 200-950 ABSOLUTE EOSINOPHILS 273 {cells/uL} (Normal) Range: 15-500 ABSOLUTE BASOPHILS 59 {cells/uL} (Normal) Range: 0-200 NEUTROPHILS 64.4 % (Normal) LYMPHOCYTES 13.4 % (Normal) MONOCYTES 13.7 % (Normal) EOSINOPHILS 7.0 % (Normal) BASOPHILS 1.5 % (Normal) :56 [[facility]] VITAMIN B12 Comments: REPORT COMMENT:FASTING:YES VITAMIN B12 1343 pg/ml (Above high threshold) Range: 200-1100 :18 [[facility]] URINALYSIS, COMPLETE COLOR YELLOW (Normal) Range: [...] SEEN {/LPF} (Normal) Range: NONE SEEN 07-Aug-20198:18 [[facility]] CULTURE, URINE, ROUTINE CULTURE (Abnormal) Comments: CULTURE, URINE, ROUTINE Micro Number: [id number] Test Status: Final Specimen Source: URINE Specimen [...] Problem not documented On: 30-Aug-2018 10:00 [facility] Diagnosis: Problem not documented On: 30-Aug-2018 [...] not documented On: 07-Jul-2019 14:45 Appointment; ELIZABETH GONAZLEZ M.D. Encounter Diagnosis: Problem not documented On: [...]
--- OUTSIDE RECORDS SUMMARY | 2019-08-12 10:09 | XMS REPORT | Summary of Care ---
Author Author [place] [facility] Address [address] [place] [address] Phone Unavailable Care Team Providers Care Roll Shop Supervisor Name Role Phone ELLY Gao, RYAN Unavailable Unavailable TRU P.AKevin, RAJ Unavailable Unavailable NURIS Gao, CELI Unavailable Sola GONZALEZ MD [place], ELIZABETH PALM Unavailable Unavailable NURIS PAINTER, CELI Senior Unavailable Unavailable CARLOS Gao, ELIZABETH Unavailable Unavailable MARY SAVINGS COUNSELOR, RADHA Unavailable Unavailable Elly PAINTER, Ryan Unavailable Unavailable CARLOS PAINTER, ELIZABETH ANTHONY Unavailable Unavailable EVE BARRERA [place], SHAHLA Gonzalez Unavailable Unavailable NITIN PAINTER, SANDRA Obregon Unavailable Unavailable NARAYAN CERVANTES, EDMUND Unavailable Unavailable TRU PA [place], RAJ FRAIRE Unavailable Unavailable MATTEO PAINTER [place], SHELBIE Unavailable Unavailable Unavailable Unavailable Functional Status [...] Z78.0) Status: 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 (1-2-7-2-4-2-2) * Quantity: 90 Refills: 0 RAJ MATTHEW [...] Z87.440) Status: Resolved Procedures Procedure Dates Details [[facility]] HEPATIC FUNCTION PANEL Date: 26-Jun-2019 History of Bladder Procedures Completed History of Tonsillectomy Completed History of Shoulder Surgery Completed History of Arthroscopy Knee Completed History of Cholecystectomy Completed 16-Jul-2016 Immunization Name Dates Details Zoster (Zostavax) on: Jul-2007 Hepatitis A on: 25-Aug-2010 Influenza on: 10-Mar-2011 Fluzone INJ Lot #: [id number] on: 20-Mar-2013 Influenza on: 04-Apr-2014 Prevnar 13 Intramuscular Suspension Lot #: [id number] on: 20-Aug-2014 Fluvirin INJ Lot #: [id number] on: 15-Mar-2015 Fluzone Quadrivalent 0.5 ML Intramuscular Suspension Lot #: [id number] on: 20-Mar-2016 Pneumovax 23 25 MCG/0.5ML Injection Injectable Lot #: [id number] on: 08-Sep-2016 Fluzone High-Dose 0.5 ML Intramuscular Suspension Prefilled Syringe Lot #: [id number] on: 10-Mar-2017 Fluzone High-Dose 0.5 ML Intramuscular Suspension Prefilled Syringe Lot #: [id number] on: 17-Mar-2018 Shingrix 50 MCG/0.5ML Intramuscular Suspension Reconstituted on: 04-Apr-2018 Tdap on: 04-Apr-2018 Shingrix 50 MCG/0.5ML Intramuscular Suspension Reconstituted on: 04-Jun-2018 Fluzone High-Dose 0.5 ML Intramuscular Suspension Prefilled Syringe Lot #: [id number] on: 19-Apr-2019 Family History Name Dates Details [...] day? Results Date Description Value Details :23 [[facility]] CMP W/EGFR GLUCOSE 98 mg/dl (Normal) Range: [...] u/l (Above high threshold) Range: 6-29 :23 [[facility]] D-DIMER, QUANTITATIVE D-DIMER, QUANTITATIVE 0.31 {mcg/mL_FEU} [...] 2006 11:295(2):199-207] For additional information, please refer to:http://education.GlobalTranz/faq/BBE924(This link is being provided for informational/educational purposes only) :23 [[facility]] CBC (INCLUDES DIFF/PLT) WHITE BLOOD CELL [...] 7.5-12.5 ABSOLUTE NEUTROPHILS 3548 {cells/uL} (Normal) Range: 5227-9815 ABSOLUTE LYMPHOCYTES 691 {cells/uL} (Below low threshold) [...] <0.01 Comments: For additional information, please refer tohttp://education.GlobalTranz/faq/WWG961(This link is being provided for informational/educationalpurposes only.) [...] higher for peopleidentified as -Peruvian. eGFR NON- 49 {ML/MIN/1.7} (Below low threshold) [...] ALT 21 u/l (Normal) Range: 6-29 3-:56 [[facility]] CBC (INCLUDES DIFF/PLT) WHITE BLOOD CELL [...] 7.5-12.5 ABSOLUTE NEUTROPHILS 2512 {cells/uL} (Normal) Range: 9057-7009 ABSOLUTE LYMPHOCYTES 523 {cells/uL} (Below low threshold) Range: 850-3900 ABSOLUTE MONOCYTES 534 {cells/uL} (Normal) Range: 200-950 ABSOLUTE EOSINOPHILS 273 {cells/uL} (Normal) Range: 15-500 ABSOLUTE BASOPHILS 59 {cells/uL} (Normal) Range: 0-200 NEUTROPHILS 64.4 % (Normal) LYMPHOCYTES 13.4 % (Normal) MONOCYTES 13.7 % (Normal) EOSINOPHILS 7.0 % (Normal) BASOPHILS 1.5 % (Normal) :56 [[facility]] VITAMIN B12 Comments: REPORT COMMENT:FASTING:YES VITAMIN B12 1343 pg/ml (Above high threshold) Range: 200-1100 :18 [[facility]] URINALYSIS, COMPLETE COLOR YELLOW (Normal) Range: YELLOW [...] SEEN {/LPF} (Normal) Range: NONE SEEN 07-Aug-20198:18 [[facility]] CULTURE, URINE, ROUTINE CULTURE (Abnormal) Comments: CULTURE, URINE, ROUTINE Micro Number: [id number] Test Status: Final Specimen Source: URINE Specimen [...] not documented On: 17-Mar-2018 8:45 Appointment; EDMUND BUCSH P.AKevin Encounter Diagnosis: Problem not documented On: [...] Problem not documented On: 30-Aug-2018 10[facility]00 [facility] Diagnosis: Problem not documented On: 30-Aug-2018 [...]
--- OUTSIDE RECORDS SUMMARY | 2019-08-12 10:09 | XMS REPORT | Summary of Care ---
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 (0-1-9-2-4-2-2) * Quantity: 90 Refills: 0 RAJ MATTHEW [...] Resolved Procedures Procedure Dates Details [[facility]] HEPATIC FUNCTION PANEL Date: 26-Jun-2019 History of Bladder Procedures Completed History of Tonsillectomy Completed History of Shoulder Surgery Completed History of Arthroscopy Knee Completed History of Cholecystectomy Completed 16-Jul-2016 Immunization Name Dates Details Zoster (Zostavax) on: Jul-2007 Hepatitis A on: 25-Aug-2010 Influenza on: 10-Mar-2011 Fluzone INJ Lot #: [id number] on: 20-Mar-2013 Influenza on: 04-Apr-2014 Prevnar 13 Intramuscular Suspension Lot #: [id number] on: 20-Aug-2014 Fluvirin INJ Lot #: [id number] on: 15-Mar-2015 Fluzone Quadrivalent 0.5 ML Intramuscular Suspension Lot #: [id number] on: 20-Mar-2016 Pneumovax 23 25 MCG/0.5ML Injection Injectable Lot #: [id number] on: 08-Sep-2016 Fluzone High-Dose 0.5 ML Intramuscular Suspension Prefilled Syringe Lot #: [id number] on: 10-Mar-2017 Fluzone High-Dose 0.5 ML Intramuscular Suspension Prefilled Syringe Lot #: [id number] on: 17-Mar-2018 Shingrix 50 MCG/0.5ML Intramuscular Suspension Reconstituted on: 04-Apr-2018 Tdap on: 04-Apr-2018 Shingrix 50 MCG/0.5ML Intramuscular Suspension Reconstituted on: 04-Jun-2018 Fluzone High-Dose 0.5 ML Intramuscular Suspension Prefilled Syringe Lot #: [id number] on: 19-Apr-2019 Family History Name Dates Details [...] Details :23 [[facility]] CMP W/EGFR GLUCOSE 98 mg/dl (Normal) Range: 65-139 Comments: Non-fasting reference interval UREA NITROGEN (BUN) 28 mg/dl (Above high threshold) Range: 7-25 CREATININE 1.16 mg/dl (Above high threshold) Range: 0.60-0.93 Comments: For patients >49 years of age, the reference limitfor Creatinine is approximately 13% higher for peopleidentified as -Armenian. eGFR NON- 45 {ML/MIN/1.7} (Below low threshold) [...] 6-29 :23 [[facility]] D-DIMER, QUANTITATIVE D-DIMER, QUANTITATIVE 0.31 [...] 2006 11:295(2):199-207] For additional information, please refer to:http://education.ForwardMetrics/faq/TLR904(This link is being provided for informational/educational purposes only) :23 [[facility]] CBC (INCLUDES DIFF/PLT) WHITE BLOOD [...] 7.5-12.5 ABSOLUTE NEUTROPHILS 3548 {cells/uL} (Normal) Range: 9106-4402 ABSOLUTE LYMPHOCYTES 691 {cells/uL} (Below low threshold) [...] <0.01 Comments: For additional information, please refer tohttp://education.ForwardMetrics/faq/UQC597(This link is being provided for informational/educationalpurposes only.) [...] is approximately 13% higher for peopleidentified as -Armenian. eGFR NON- 49 {ML/MIN/1.7} (Below low threshold) [...] ALT 21 u/l (Normal) Range: 6-29 3-:56 [[facility]] CBC (INCLUDES DIFF/PLT) WHITE BLOOD [...] 7.5-12.5 ABSOLUTE NEUTROPHILS 2512 {cells/uL} (Normal) Range: 8073-2665 ABSOLUTE LYMPHOCYTES 523 {cells/uL} (Below low threshold) Range: 850-3900 ABSOLUTE MONOCYTES 534 {cells/uL} (Normal) Range: 200-950 ABSOLUTE EOSINOPHILS 273 {cells/uL} (Normal) Range: 15-500 ABSOLUTE BASOPHILS 59 {cells/uL} (Normal) Range: 0-200 NEUTROPHILS 64.4 % (Normal) LYMPHOCYTES 13.4 % (Normal) MONOCYTES 13.7 % (Normal) EOSINOPHILS 7.0 % (Normal) BASOPHILS 1.5 % (Normal) :56 [[facility]] VITAMIN B12 Comments: REPORT COMMENT:FASTING:YES VITAMIN B12 1343 pg/ml (Above high threshold) Range: 200-1100 :18 [[facility]] URINALYSIS, COMPLETE COLOR YELLOW (Normal) Range: YELLOW [...] SEEN {/LPF} (Normal) Range: NONE SEEN 07-Aug-20198:18 [[facility]] CULTURE, URINE, ROUTINE CULTURE (Abnormal) Comments: CULTURE, URINE, ROUTINE Micro Number: [id number] Test Status: Final Specimen Source: URINE Specimen [...] Problem not documented On: 09-May-2018 8:15 Appointment; EDUMND BUSCH PKevinAKevin Encounter Diagnosis: Problem not documented [...] not documented On: 30-Aug-2018 10:00 [facility] Diagnosis: Problem not documented On: [...]
--- OUTSIDE RECORDS SUMMARY | 2019-08-12 10:10 | XMS REPORT | Summary of Care ---
Author Author [place] [facility] [place] [facility] Address [address] [place] [address] Phone Unavailable Care Team Providers Care Economic Development Coordinator Name Role Phone ELLY Gao, RYAN Unavailable Unavailable TRU P.AKevin, RAJ Unavailable Unavailable NURIS Gao, CELI Unavailable Sola GONZALEZ MD [place], ELIZABETH PALM Unavailable Unavailable NURIS PAINTER, CELI Senior Unavailable Unavailable CARLOS Gao, ELIZABETH Unavailable Unavailable MARY TELECOMMUNICATION EQUIPMENT REPAIRER, RADHA Unavailable Unavailable Elly PAINTER, Ryan Unavailable Unavailable CARLOS PAINTER, ELIZABETH ANTHONY Unavailable Unavailable EVE BARRERA [place], SHAHLA Gonzalez Unavailable Unavailable NITIN PAINTER, SANDRA Obregon Unavailable Unavailable NARAYAN CERVANTES, EDMUND Unavailable Unavailable TRU PA [place], RAJ FRAIRE Unavailable Unavailable MATTEO PAINTER [...] Z78.0) Status: 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 (3-4-8-2-4-2-2) * Quantity: 90 Refills: 0 RAJ MATTHEW [...] Influenza on: 10-Mar-2011 Fluzone INJ Lot #: [id number] on: 20-Mar-2013 Influenza on: 04-Apr-2014 Prevnar 13 Intramuscular Suspension Lot #: [id number] on: 20-Aug-2014 Fluvirin INJ Lot #: [id number] on: 15-Mar-2015 Fluzone Quadrivalent 0.5 ML Intramuscular Suspension Lot #: [id number] on: 20-Mar-2016 Pneumovax 23 25 MCG/0.5ML Injection Injectable Lot #: [id number] on: 08-Sep-2016 Fluzone High-Dose 0.5 ML Intramuscular Suspension Prefilled Syringe Lot #: [id number] on: 10-Mar-2017 Fluzone High-Dose 0.5 ML Intramuscular Suspension Prefilled Syringe Lot #: [id number] on: 17-Mar-2018 Shingrix 50 MCG/0.5ML Intramuscular Suspension Reconstituted on: 04-Apr-2018 Tdap on: 04-Apr-2018 Shingrix 50 MCG/0.5ML Intramuscular Suspension Reconstituted on: 04-Jun-2018 Fluzone High-Dose 0.5 ML Intramuscular Suspension Prefilled Syringe Lot #: [id number] on: 19-Apr-2019 Family History Name Dates Details [...] is approximately 13% higher for peopleidentified as -Citizen Of [place]. eGFR NON- 45 {ML/MIN/1.7} (Below low threshold) [...] 2006 11:295(2):199-207] For additional information, please refer to:http://education.inDinero/faq/LUK958(This link is being provided for informational/educational purposes [...] 7.5-12.5 ABSOLUTE NEUTROPHILS 3548 {cells/uL} (Normal) Range: 7741-3082 ABSOLUTE LYMPHOCYTES 691 {cells/uL} (Below low threshold) [...] <0.01 Comments: For additional information, please refer tohttp://education.inDinero/faq/NHL459(This link is being provided for informational/educationalpurposes only.) [...] is approximately 13% higher for peopleidentified as -Citizen Of [place]. eGFR NON- 49 {ML/MIN/1.7} (Below low threshold) [...] 7.5-12.5 ABSOLUTE NEUTROPHILS 2512 {cells/uL} (Normal) Range: 1279-0114 ABSOLUTE LYMPHOCYTES 523 {cells/uL} (Below low threshold) [...] (Abnormal) Comments: CULTURE, URINE, ROUTINE Micro Number: [id number] Test Status: Final Specimen Source: URINE Specimen [...] not documented On: 09-May-2018 8:15 Appointment; EDMUND UBSCH PKevinAKevin Encounter Diagnosis: Problem not documented On: [...] Problem not documented On: 30-Aug-2018 10:00 [facility] Diagnosis: Problem not documented On: [...]
--- OUTSIDE RECORDS SUMMARY | 2019-08-12 10:10 | XMS REPORT | Summary of Care ---
Author Author [facility] Address [address] [place] [address] Phone Unavailable Care Team Providers Care Seed Laboratory Technician Name Role Phone ELLY Gao, RYAN Unavailable Unavailable TRU P.AKevin, RAJ Unavailable Unavailable NURIS Gao, CELI Unavailable Sola GONZALEZ MD [place], ELIZABETH PALM Unavailable Unavailable NURIS PAINTER, CELI Senior Unavailable Unavailable CARLOS Gao, ELIZABETH Unavailable Unavailable MARY WELDER/FABRICATOR, RADHA Unavailable Unavailable Elly PAINTER, Ryan Unavailable Unavailable CARLOS PAINTER, LEIZABETH ANTHONY Unavailable Unavailable EVE BARRERA [place], SHAHLA Gonzalez Unavailable Unavailable NITIN PAINTER, SANDRA Obregon Unavailable Unavailable NARAYAN CERVANTES, EDMUND Unavailable Unavailable TRU PA [place], RAJ FRAIRE Unavailable Unavailable MATTEO PAINTER [...] Z78.0) Status: 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 (1-8-3-2-4-2-2) * Quantity: 90 Refills: 0 RAJ MATTHEW [...] Z87.440) Status: Resolved Procedures Procedure Dates Details [[facility]] HEPATIC FUNCTION PANEL Date: 26-Jun-2019 History of Bladder Procedures Completed History of Tonsillectomy Completed History of Shoulder Surgery Completed History of Arthroscopy Knee Completed History of Cholecystectomy Completed 16-Jul-2016 Immunization Name Dates Details Zoster (Zostavax) on: Jul-2007 Hepatitis A on: 25-Aug-2010 Influenza on: 10-Mar-2011 Fluzone INJ Lot #: [id number] on: 20-Mar-2013 Influenza on: 04-Apr-2014 Prevnar 13 Intramuscular Suspension Lot #: [id number] on: 20-Aug-2014 Fluvirin INJ Lot #: [id number] on: 15-Mar-2015 Fluzone Quadrivalent 0.5 ML Intramuscular Suspension Lot #: [id number] on: 20-Mar-2016 Pneumovax 23 25 MCG/0.5ML Injection Injectable Lot #: [id number] on: 08-Sep-2016 Fluzone High-Dose 0.5 ML Intramuscular Suspension Prefilled Syringe Lot #: [id number] on: 10-Mar-2017 Fluzone High-Dose 0.5 ML Intramuscular Suspension Prefilled Syringe Lot #: [id number] on: 17-Mar-2018 Shingrix 50 MCG/0.5ML Intramuscular Suspension Reconstituted on: 04-Apr-2018 Tdap on: 04-Apr-2018 Shingrix 50 MCG/0.5ML Intramuscular Suspension Reconstituted on: 04-Jun-2018 Fluzone High-Dose 0.5 ML Intramuscular Suspension Prefilled Syringe Lot #: [id number] on: 19-Apr-2019 Family History Name Dates Details [...] day? Results Date Description Value Details :23 [[facility]] CMP W/EGFR GLUCOSE 98 mg/dl (Normal) Range: 65-139 Comments: Non-fasting reference interval UREA NITROGEN (BUN) 28 mg/dl (Above high threshold) Range: 7-25 CREATININE 1.16 mg/dl (Above high threshold) Range: 0.60-0.93 Comments: For patients >49 years of age, the reference limitfor Creatinine is approximately 13% higher for peopleidentified as -Togolese. eGFR NON- 45 {ML/MIN/1.7} (Below low threshold) [...] u/l (Above high threshold) Range: 6-29 :23 [[facility]] D-DIMER, QUANTITATIVE D-DIMER, QUANTITATIVE 0.31 {mcg/mL_FEU} [...] 2006 11:295(2):199-207] For additional information, please refer to:http://education.Beep/faq/EQX219(This link is being provided for informational/educational purposes only) :23 [[facility]] CBC (INCLUDES DIFF/PLT) WHITE BLOOD CELL [...] 7.5-12.5 ABSOLUTE NEUTROPHILS 3548 {cells/uL} (Normal) Range: 2805-7123 ABSOLUTE LYMPHOCYTES 691 {cells/uL} (Below low threshold) [...] <0.01 Comments: For additional information, please refer tohttp://education.Beep/faq/BRE860(This link is being provided for informational/educationalpurposes only.) [...] is approximately 13% higher for peopleidentified as -Togolese. eGFR NON- 49 {ML/MIN/1.7} (Below low threshold) [...] ALT 21 u/l (Normal) Range: 6-29 3-:56 [[facility]] CBC (INCLUDES DIFF/PLT) WHITE BLOOD CELL [...] 7.5-12.5 ABSOLUTE NEUTROPHILS 2512 {cells/uL} (Normal) Range: 6382-4766 ABSOLUTE LYMPHOCYTES 523 {cells/uL} (Below low threshold) Range: 850-3900 ABSOLUTE MONOCYTES 534 {cells/uL} (Normal) Range: 200-950 ABSOLUTE EOSINOPHILS 273 {cells/uL} (Normal) Range: 15-500 ABSOLUTE BASOPHILS 59 {cells/uL} (Normal) Range: 0-200 NEUTROPHILS 64.4 % (Normal) LYMPHOCYTES 13.4 % (Normal) MONOCYTES 13.7 % (Normal) EOSINOPHILS 7.0 % (Normal) BASOPHILS 1.5 % (Normal) :56 [[facility]] VITAMIN B12 Comments: REPORT COMMENT:FASTING:YES VITAMIN B12 1343 pg/ml (Above high threshold) Range: 200-1100 :18 [[facility]] URINALYSIS, COMPLETE COLOR YELLOW (Normal) Range: [...] SEEN {/LPF} (Normal) Range: NONE SEEN 07-Aug-20198:18 [[facility]] CULTURE, URINE, ROUTINE CULTURE (Abnormal) Comments: CULTURE, URINE, ROUTINE Micro Number: [id number] Test Status: Final Specimen Source: URINE Specimen [...] documented On: 08-Feb-2018 10:30 Appointment; EDMUND BUSCH PJosué Encounter Diagnosis: Problem not documented On: 15-Feb-2018 [...] documented On: 02-May-2018 7:30 Appointment; EDMUND BUSCH P.AKevni Encounter Diagnosis: Problem not documented On: 09-May-2018 [...] Problem not documented On: 30-Aug-2018 10:00 Appointment; [facility] Encounter Diagnosis: Problem not documented On: 30-Aug-2018 [...] not documented On: 27-Feb-2019 9:00 Appointment; DEANA, JOSÉ Encounter Diagnosis: Problem not documented On: 01-Mar-2019 [...]
--- OUTSIDE RECORDS SUMMARY | 2019-08-12 10:10 | XMS REPORT | Summary of Care ---
Author Author [facility] Address [address] [place] [address] Phone Unavailable Care Team Providers Care Inseam Trimmer Name Role Phone ELLY Gao, RYAN Unavailable Unavailable TRU P.AKevin, RAJ Unavailable Unavailable NURIS Gao, CELI Unavailable Sola GONZALEZ MD [place], ELIZABETH PALM Unavailable Unavailable NURIS PAINTER, CELI Senior Unavailable Unavailable CARLOS Gao, ELIZABETH Unavailable Unavailable MARY PROPERTY ASSISTANT, RADHA Unavailable Unavailable Elly PAINTER, Ryan Unavailable [...] Lower back pain (724.2, M54.5) Status: Active Allergic rhinitis (477.9, J30.9) Status: Active Obstructive sleep apnea (327.23, G47.33) Status: Active Hypotension of hemodialysis (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.21, I95.3) Status: Active Pancytopenia (284.19, D61.818) Status: Active Right leg pain (729.5, M79.604) Status: Active Knee pain (719.46, M25.569) Status: [...] of right knee (715.16, M17.11) Status: Active Function kidney decreased (593.9, N28.9) Status: Active Overactive bladder (596.51, N32.81) Status: [...] Z78.0) Status: Active 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 (9-2-2-2-4-2-2) * Quantity: 90 Refills: 0 RAJ MATTHEW [...] TABLET TWICE DAILY * Refills: 0 Active Fludrocortisone Acetate 0.1 MG Oral Tablet 1 PO QOD x 1 week, then 1 PO every third day * Quantity: 60 Refills: 1 RAJ MATTHEW * Start : 19-Jul-2019 Active Stool Softener TABS TAKE 1 TABLET TWICE DAILY * Refills: 0 Active Multivitamins TABS TAKE 1 TABLET DAILY. * Refills: 0 Active Nitroglycerin 0.4 MG Sublingual Tablet Sublingual DISSOLVE 1 TABLET UNDER THE TONGUE NEEDED FOR CHEST PAIN. * Quantity: 30 Refills: 0 CELI LAWLER M.D. * Start : 07-Jul-2019 Active Allergies and Adverse Reactions Name Dates [...] Z87.440) Status: Resolved Procedures Procedure Dates Details [[facility]] HEPATIC FUNCTION PANEL Date: 26-Jun-2019 History of Bladder Procedures Completed History of Tonsillectomy Completed History of Shoulder Surgery Completed History of Arthroscopy Knee Completed History of Cholecystectomy Completed 16-Jul-2016 Immunization Name Dates Details Zoster (Zostavax) on: Jul-2007 Hepatitis A on: 25-Aug-2010 Influenza on: 10-Mar-2011 Fluzone INJ Lot #: [id number] on: 20-Mar-2013 Influenza on: 04-Apr-2014 Prevnar 13 Intramuscular Suspension Lot #: [id number] on: 20-Aug-2014 Fluvirin INJ Lot #: [id number] on: 15-Mar-2015 Fluzone Quadrivalent 0.5 ML Intramuscular Suspension Lot #: [id number] on: 20-Mar-2016 Pneumovax 23 25 MCG/0.5ML Injection Injectable Lot #: [id number] on: 08-Sep-2016 Fluzone High-Dose 0.5 ML Intramuscular Suspension Prefilled Syringe Lot #: [id number] on: 10-Mar-2017 Fluzone High-Dose 0.5 ML Intramuscular Suspension Prefilled Syringe Lot #: [id number] on: 17-Mar-2018 Shingrix 50 MCG/0.5ML Intramuscular Suspension Reconstituted on: 04-Apr-2018 Tdap on: 04-Apr-2018 Shingrix 50 MCG/0.5ML Intramuscular Suspension Reconstituted on: 04-Jun-2018 Fluzone High-Dose 0.5 ML Intramuscular Suspension Prefilled Syringe Lot #: [id number] on: 19-Apr-2019 Family History Name Dates Details [...] day? Results Date Description Value Details :23 [[facility]] CMP W/EGFR GLUCOSE 98 mg/dl (Normal) Range: 65-139 Comments: Non-fasting reference interval UREA NITROGEN (BUN) 28 mg/dl (Above high threshold) Range: 7-25 CREATININE 1.16 mg/dl (Above high threshold) Range: 0.60-0.93 Comments: For patients >49 years of age, the reference limitfor Creatinine is approximately 13% higher for peopleidentified as -[place]ambian. eGFR NON- 45 {ML/MIN/1.7} (Below low threshold) [...] u/l (Above high threshold) Range: 6-29 :23 [[facility]] D-DIMER, QUANTITATIVE D-DIMER, QUANTITATIVE 0.31 [...] 2006 11:295(2):199-207] For additional information, please refer to:http://education.Gigawatt/faq/NRI430(This link is being provided for informational/educational purposes only) :23 [[facility]] CBC (INCLUDES DIFF/PLT) WHITE BLOOD [...] 7.5-12.5 ABSOLUTE NEUTROPHILS 3548 {cells/uL} (Normal) Range: 9108-2798 ABSOLUTE LYMPHOCYTES 691 {cells/uL} (Below low threshold) [...] <0.01 Comments: For additional information, please refer tohttp://education.Gigawatt/faq/VBP808(This link is being provided for informational/educationalpurposes only.) [...] is approximately 13% higher for peopleidentified as -Gambian. eGFR NON- 49 {ML/MIN/1.7} (Below low threshold) [...] ALT 21 u/l (Normal) Range: 6-29 3-:56 [[facility]] CBC (INCLUDES DIFF/PLT) WHITE BLOOD [...] 7.5-12.5 ABSOLUTE NEUTROPHILS 2512 {cells/uL} (Normal) Range: 4920-7357 ABSOLUTE LYMPHOCYTES 523 {cells/uL} (Below low threshold) Range: 850-3900 ABSOLUTE MONOCYTES 534 {cells/uL} (Normal) Range: 200-950 ABSOLUTE EOSINOPHILS 273 {cells/uL} (Normal) Range: 15-500 ABSOLUTE BASOPHILS 59 {cells/uL} (Normal) Range: 0-200 NEUTROPHILS 64.4 % (Normal) LYMPHOCYTES 13.4 % (Normal) MONOCYTES 13.7 % (Normal) EOSINOPHILS 7.0 % (Normal) BASOPHILS 1.5 % (Normal) :56 [[facility]] VITAMIN B12 Comments: REPORT COMMENT:FASTING:YES VITAMIN B12 1343 pg/ml (Above high threshold) Range: 200-1100 :18 [[facility]] URINALYSIS, COMPLETE COLOR YELLOW (Normal) Range: [...] SEEN {/LPF} (Normal) Range: NONE SEEN 07-Aug-20198:18 [[facility]] CULTURE, URINE, ROUTINE CULTURE (Abnormal) Comments: CULTURE, URINE, ROUTINE Micro Number: [id number] Test Status: Final Specimen Source: URINE Specimen [...] documented On: 08-Feb-2018 10:30 Appointment; EDMUND BUSCH PJsoué Encounter Diagnosis: Problem not documented On: 15-Feb-2018 [...] Problem not documented On: 30-Aug-2018 10:00 Appointment; [facility] Encounter Diagnosis: Problem not documented On: [...]
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
--- OUTSIDE RECORDS SUMMARY | 2019-08-12 10:11 | XMS REPORT | Summary of Care ---
Author Author Yosef Ho, Talisha Ayala Unknown Address Unknown Phone Unavailable Care Team Providers Care All Terrain Vehicle Technician Name Role Phone ELLY Gao, RYAN Unavailable Unavailable Yosef Ho, Talisha Unavailable Unavailable TRU P.AKevin, RAJ Unavailable Unavailable NURIS Gao, CELI Unavailable Sola GONZALEZ MD [place], ELIZABETH PALM Unavailable Unavailable NURIS PAINTER, CELI Senior Unavailable Unavailable CARLOS Gao, ELIZABETH Unavailable Unavailable MARY COLUNGAP, RADHA Unavailable Unavailable Elly PAINTER, Ryan Unavailable Unavailable CARLOS PAINTER, ELIZABETH ANTHONY Unavailable Unavailable EVE BARRERA [place], SHAHLA J Unavailable Unavailable NITIN PAINTER, SANDRA Obregon Unavailable Unavailable NARAYAN CERVANTES, EDMUND Unavailable Unavailable TRU MORATAYA [place], RAJ FRAIRE Unavailable Unavailable MATTEO PAINTER [place], SHELBIE Unavailable Unavailable Unavailable Unavailable Functional Status [...] Z78.0) Status: Active 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 (8-0-5-2-4-2-2) * Quantity: 90 Refills: 0 RAJ MATTHEW [...] Status: Resolved Procedures Procedure Dates Details [[facility]] HEPATIC FUNCTION PANEL Date: 26-Jun-2019 History of Bladder Procedures Completed History of Tonsillectomy Completed History of Shoulder Surgery Completed History of Arthroscopy Knee Completed History of Cholecystectomy Completed 16-Jul-2016 Immunization Name Dates Details Zoster (Zostavax) on: Jul-2007 Hepatitis A on: 25-Aug-2010 Influenza on: 10-Mar-2011 Fluzone INJ Lot #: [id number] on: 20-Mar-2013 Influenza on: 04-Apr-2014 Prevnar 13 Intramuscular Suspension Lot #: [id number] on: 20-Aug-2014 Fluvirin INJ Lot #: [id number] on: 15-Mar-2015 Fluzone Quadrivalent 0.5 ML Intramuscular Suspension Lot #: [id number] on: 20-Mar-2016 Pneumovax 23 25 MCG/0.5ML Injection Injectable Lot #: [id number] on: 08-Sep-2016 Fluzone High-Dose 0.5 ML Intramuscular Suspension Prefilled Syringe Lot #: [id number] on: 10-Mar-2017 Fluzone High-Dose 0.5 ML Intramuscular Suspension Prefilled Syringe Lot #: [id number] on: 17-Mar-2018 Shingrix 50 MCG/0.5ML Intramuscular Suspension Reconstituted on: 04-Apr-2018 Tdap on: 04-Apr-2018 Shingrix 50 MCG/0.5ML Intramuscular Suspension Reconstituted on: 04-Jun-2018 Fluzone High-Dose 0.5 ML Intramuscular Suspension Prefilled Syringe Lot #: [id number] on: 19-Apr-2019 Family History Name Dates Details [...] /min Status: Respiration Rate 16 /min Status: [id number]-[id number]-[id number]:31 BP Systolic 79 mm[Hg] Status: Comments: Location: [...] is approximately 13% higher for peopleidentified as -[place]ican. eGFR NON- 49 {ML/MIN/1.7} (Below low threshold) [...] ALT 21 u/l (Normal) Range: 6-29 :56 [[facility]] CBC (INCLUDES DIFF/PLT) WHITE BLOOD [...] 7.5-12.5 ABSOLUTE NEUTROPHILS 2512 {cells/uL} (Normal) Range: 0663-7099 ABSOLUTE LYMPHOCYTES 523 {cells/uL} (Below low threshold) Range: 850-3900 ABSOLUTE MONOCYTES 534 {cells/uL} (Normal) Range: 200-950 ABSOLUTE EOSINOPHILS 273 {cells/uL} (Normal) Range: 15-500 ABSOLUTE BASOPHILS 59 {cells/uL} (Normal) Range: 0-200 NEUTROPHILS 64.4 % (Normal) LYMPHOCYTES 13.4 % (Normal) MONOCYTES 13.7 % (Normal) EOSINOPHILS 7.0 % (Normal) BASOPHILS 1.5 % (Normal) :56 [[facility]] VITAMIN B12 Comments: REPORT COMMENT:FASTING:YES VITAMIN B12 1343 pg/ml (Above high threshold) Range: 200-1100 :18 [[facility]] URINALYSIS, COMPLETE COLOR YELLOW (Normal) [...] SEEN {/LPF} (Normal) Range: NONE SEEN :18 [[facility]] CULTURE, URINE, ROUTINE CULTURE (Abnormal) Comments: CULTURE, URINE, ROUTINE Micro Number: [id number] Test Status: Final Specimen Source: URINE Specimen [...] Appointment; JOSÉ LEBLANC On: 21-Nov-2019 8:00 Appointment; RAYN SANABRIA M.D. On: 28-Nov-2019 10:00 Interventions Provided Discussion/Summary* Guideline Used: * Other: * to speak with staff member * Reason for Disposition: * to speak with staff member. * Intended Caller Action: * Other: * patient was released from [facility] recently. States she was there for memory lost. She is requesting lab orders. Patient having difficulty saying what she needs. Advised patient to be seen in clinic for f/u but she declined. Instructions Name Dates Details Instructions not documented [...] documented On: 11-Jan-2018 9:20 Appointment; EDMUND BUSCH, PKevinAKevin Encounter Diagnosis: Problem [...] Problem not documented On: 30-Aug-2018 10:00 [facility] Encounter Diagnosis: Problem not documented On: [...] Problem not documented On: 23-Jun-2019 11:30 Appointment; ARJ OTT P.A. Encounter Diagnosis: Problem not documented [...]
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
--- OUTSIDE RECORDS SUMMARY | 2019-08-12 10:11 | XMS REPORT | Summary of Care ---
Author Author [facility] Address [address] [place] [address] Phone Unavailable Care Team Providers Care Terrazzo Layer Helper Name Role Phone ELLY Gao, RYAN Unavailable Unavailable TRU P.AKevin, RAJ Unavailable Unavailable NURIS Gao, CELI Unavailable Sola GONZALEZ MD [place], ELIZABETH PALM Unavailable Unavailable NURIS PAINTER, CELI Senior Unavailable Unavailable CARLOS Gao, ELIZABETH Unavailable Unavailable MARY TUBE PULLER, RADHA Unavailable Unavailable Elly PAINTER, Ryan Unavailable Unavailable CARLOS PAINTER, ELIZABETH ANTHONY Unavailable Unavailable EVE BARRERA [place], SHAHLA Gonzalez Unavailable Unavailable NITIN PAINTER, SANDRA Obregon Unavailable Unavailable NARAYAN CERVANTES, EDMUND Unavailable Unavailable TUR PA [place], RAJ FRAIRE Unavailable Unavailable MATTEO PAINTER [place], SHELBIE Unavailable Unavailable Unavailable Unavailable Functional Status [...] Z78.0) Status: Active 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 (7-6-2-2-4-2-2) * Quantity: 90 Refills: 0 RAJ MATTHEW [...] Resolved Procedures Procedure Dates Details [[facility]] HEPATIC FUNCTION PANEL Date: 26-Jun-2019 History of Bladder Procedures Completed History of Tonsillectomy Completed History of Shoulder Surgery Completed History of Arthroscopy Knee Completed History of Cholecystectomy Completed 16-Jul-2016 Immunization Name Dates Details Zoster (Zostavax) on: Jul-2007 Hepatitis A on: 25-Aug-2010 Influenza on: 10-Mar-2011 Fluzone INJ Lot #: [id number] on: 20-Mar-2013 Influenza on: 04-Apr-2014 Prevnar 13 Intramuscular Suspension Lot #: [id number] on: 20-Aug-2014 Fluvirin INJ Lot #: [id number] on: 15-Mar-2015 Fluzone Quadrivalent 0.5 ML Intramuscular Suspension Lot #: [id number] on: 20-Mar-2016 Pneumovax 23 25 MCG/0.5ML Injection Injectable Lot #: [id number] on: 08-Sep-2016 Fluzone High-Dose 0.5 ML Intramuscular Suspension Prefilled Syringe Lot #: [id number] on: 10-Mar-2017 Fluzone High-Dose 0.5 ML Intramuscular Suspension Prefilled Syringe Lot #: [id number] on: 17-Mar-2018 Shingrix 50 MCG/0.5ML Intramuscular Suspension Reconstituted on: 04-Apr-2018 Tdap on: 04-Apr-2018 Shingrix 50 MCG/0.5ML Intramuscular Suspension Reconstituted on: 04-Jun-2018 Fluzone High-Dose 0.5 ML Intramuscular Suspension Prefilled Syringe Lot #: [id number] on: 19-Apr-2019 Family History Name Dates Details [...] is approximately 13% higher for peopleidentified as -Georgian. eGFR NON- 49 {ML/MIN/1.7} (Below low threshold) [...] ALT 21 u/l (Normal) Range: 6-29 :56 [[facility]] CBC (INCLUDES DIFF/PLT) WHITE BLOOD CELL COUNT [...] 7.5-12.5 ABSOLUTE NEUTROPHILS 2512 {cells/uL} (Normal) Range: 9381-5059 ABSOLUTE LYMPHOCYTES 523 {cells/uL} (Below low threshold) Range: 850-3900 ABSOLUTE MONOCYTES 534 {cells/uL} (Normal) Range: 200-950 ABSOLUTE EOSINOPHILS 273 {cells/uL} (Normal) Range: 15-500 ABSOLUTE BASOPHILS 59 {cells/uL} (Normal) Range: 0-200 NEUTROPHILS 64.4 % (Normal) LYMPHOCYTES 13.4 % (Normal) MONOCYTES 13.7 % (Normal) EOSINOPHILS 7.0 % (Normal) BASOPHILS 1.5 % (Normal) :56 [[facility]] VITAMIN B12 Comments: REPORT COMMENT:FASTING:YES VITAMIN B12 1343 pg/ml (Above high threshold) Range: 200-1100 :18 [[facility]] URINALYSIS, COMPLETE COLOR YELLOW (Normal) Range: YELLOW [...] SEEN {/LPF} (Normal) Range: NONE SEEN :18 [[facility]] CULTURE, URINE, ROUTINE CULTURE (Abnormal) Comments: CULTURE, URINE, ROUTINE Micro Number: [id number] Test Status: Final Specimen Source: URINE Specimen [...] not documented On: 30-Aug-2018 10:00 Appointment; [facility] Encounter Diagnosis: Problem not documented [...] Problem not documented On: 27-Feb-2019 9:00 [facility] Encounter Diagnosis: Problem not documented [...]
--- OUTSIDE RECORDS SUMMARY | 2019-08-12 10:12 | XMS REPORT | Summary of Care ---
Author Author [facility] Address [address] [place] [address] Phone Unavailable Care Team Providers Care Sdc Teacher Name Role Phone ELLY Gao, RYAN Unavailable Unavailable TRU P.AKevin, RAJ Unavailable Unavailable NURIS Gao, CELI Unavailable Sola GONZALEZ MD [place], ELIZABETH PALM Unavailable Unavailable NURIS PAINTER, CELI Senior Unavailable Unavailable CARLOS Gao, ELIZABETH Unavailable Unavailable MARY PRODUCTION WEIGHER, RADHA Unavailable Unavailable Elly PAINTER, Ryan Unavailable Unavailable CARLOS PAINTER, ELIZABETH ANTHONY Unavailable Unavailable EVE BARRERA [place], SHAHLA Gonzalez Unavailable Unavailable NITIN PAINTER, SANDRA Obregon Unavailable Unavailable NARAYAN CERVANTES, EDMUND Unavailable Unavailable TRU PA [place], RAJ FRAIRE Unavailable Unavailable MATTEO PAINTER [place], SHELBIE Unavailable Unavailable Unavailable Unavailable Functional Status [...] Z78.0) Status: Active 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 (1-7-7-2-4-2-2) * Quantity: 90 Refills: 0 RAJ MATTHEW [...] Z87.440) Status: Resolved Procedures Procedure Dates Details [[facility]] HEPATIC FUNCTION PANEL Date: 26-Jun-2019 History of Bladder Procedures Completed History of Tonsillectomy Completed History of Shoulder Surgery Completed History of Arthroscopy Knee Completed History of Cholecystectomy Completed 16-Jul-2016 Immunization Name Dates Details Zoster (Zostavax) on: Jul-2007 Hepatitis A on: 25-Aug-2010 Influenza on: 10-Mar-2011 Fluzone INJ Lot #: [id number] on: 20-Mar-2013 Influenza on: 04-Apr-2014 Prevnar 13 Intramuscular Suspension Lot #: [id number] on: 20-Aug-2014 Fluvirin INJ Lot #: [id number] on: 15-Mar-2015 Fluzone Quadrivalent 0.5 ML Intramuscular Suspension Lot #: [id number] on: 20-Mar-2016 Pneumovax 23 25 MCG/0.5ML Injection Injectable Lot #: [id number] on: 08-Sep-2016 Fluzone High-Dose 0.5 ML Intramuscular Suspension Prefilled Syringe Lot #: [id number] on: 10-Mar-2017 Fluzone High-Dose 0.5 ML Intramuscular Suspension Prefilled Syringe Lot #: [id number] on: 17-Mar-2018 Shingrix 50 MCG/0.5ML Intramuscular Suspension Reconstituted on: 04-Apr-2018 Tdap on: 04-Apr-2018 Shingrix 50 MCG/0.5ML Intramuscular Suspension Reconstituted on: 04-Jun-2018 Fluzone High-Dose 0.5 ML Intramuscular Suspension Prefilled Syringe Lot #: [id number] on: 19-Apr-2019 Family History Name Dates Details [...] is approximately 13% higher for peopleidentified as -Guyanese. eGFR NON- 49 {ML/MIN/1.7} (Below low threshold) [...] ALT 21 u/l (Normal) Range: 6-29 :56 [[facility]] CBC (INCLUDES DIFF/PLT) WHITE BLOOD [...] 7.5-12.5 ABSOLUTE NEUTROPHILS 2512 {cells/uL} (Normal) Range: 6853-9249 ABSOLUTE LYMPHOCYTES 523 {cells/uL} (Below low threshold) Range: 850-3900 ABSOLUTE MONOCYTES 534 {cells/uL} (Normal) Range: 200-950 ABSOLUTE EOSINOPHILS 273 {cells/uL} (Normal) Range: 15-500 ABSOLUTE BASOPHILS 59 {cells/uL} (Normal) Range: 0-200 NEUTROPHILS 64.4 % (Normal) LYMPHOCYTES 13.4 % (Normal) MONOCYTES 13.7 % (Normal) EOSINOPHILS 7.0 % (Normal) BASOPHILS 1.5 % (Normal) :56 [[facility]] VITAMIN B12 Comments: REPORT COMMENT:FASTING:YES VITAMIN B12 1343 pg/ml (Above high threshold) Range: 200-1100 :18 [[facility]] URINALYSIS, COMPLETE COLOR YELLOW (Normal) [...] SEEN {/LPF} (Normal) Range: NONE SEEN :18 [[facility]] CULTURE, URINE, ROUTINE CULTURE (Abnormal) Comments: CULTURE, URINE, ROUTINE Micro Number: [id number] Test Status: Final Specimen Source: URINE Specimen [...] Problem not documented On: 30-Aug-2018 10:00 Appointment; [facility] Encounter Diagnosis: Problem not documented On: [...] Problem not documented On: 27-Feb-2019 9:00 Appointment; [facility] Encounter Diagnosis: Problem not documented [...]
[2019-08-12] MEDS ORDERED: POTASSIUM CHLORIDE 20 MEQ TAB CR PO ONE (11:53)
[2019-08-12] MEDS ORDERED: K DUR10 MEQ PO (12:13)
[2019-08-12] MEDS ORDERED: CEPHALEXIN500 MG PO (12:16)
[2019-08-12] MEDS ORDERED: POTASSIUM CHLORIDE 20 MEQ TAB CR PO STA (12:31)
[2019-08-12 12:35] VITALS: BP 143/94
== END 2019-08-12 12:31 | disposition home or self-care (01) ==
LOC: FSED 10:02
DX: E87.6 Hypokalemia (principal); I48.0 Paroxysmal atrial fibrillation; E03.9 Hypothyroidism, unspecified; I25.10 Atherosclerotic heart disease of native coronary artery without angina pectoris; E78.5 Hyperlipidemia, unspecified; Z79.01 Long term (current) use of anticoagulants; Z88.0 Allergy status to penicillin
CPT/HCPCS: 80053; 81003; 85025; 85610; 87086; 99284